=== PATIENT | male | born 1950 | race Caucasian/White ===

== ENCOUNTER 2023-02-23 13:10 | Inpatient (IN) | payer OTHER, MEDICARE ==
[2023-02-23] MEDS ORDERED: Ondansetron ODT 4 MG TAB SL PRN (15:47)
[2023-02-23] MEDS ORDERED: Vancomycin HCl 750 MG VIAL IVPB SCH (17:00)
[2023-02-23] MEDS ORDERED: Vancomycin HCl 750 MG in Sodium Chloride 0.9% 250 ML 250 ML IVPB SCH (17:45)
[2023-02-23] MEDS: Carvedilol 25 MG TAB PO SCH (17:48)
[2023-02-23] MEDS ORDERED: Meropenem 1 GM VIAL IVPB SCH (20:00)
[2023-02-23] MEDS: Meropenem 1 GM in Sodium Chloride 0.9% 100 ML IVPB SCH (20:26)
[2023-02-23] MEDS: Apixaban 5 MG TAB PO SCH (20:27)
[2023-02-23] MEDS: HYDROcodone/Acetaminophen 5/325 mg Tablet PO SCH (20:27)
[2023-02-23] MEDS: Pregabalin 50 MG CAP PO SCH (20:29)
[2023-02-23] MEDS: Lisinopril 20 MG TAB PO SCH (20:29)
[2023-02-24] MEDS: HYDROcodone/Acetaminophen 5/325 mg Tablet PO PRN ×2 (02:16→15:56)
[2023-02-24] MEDS: Vancomycin HCl 750 MG in Sodium Chloride 0.9% 250 ML 250 ML IVPB SCH ×2 (04:15→16:58)
[2023-02-24] MEDS: Meropenem 1 GM in Sodium Chloride 0.9% 100 ML IVPB SCH ×3 (05:20→20:28)
[2023-02-24 05:24] LABS: #Basophils 0.1 thou/uL (0.0-0.2); #Eosinphils 0.1 thou/uL (0.0-0.7); #Lymphocytes 0.8 thou/uL (1.20-3.40); #Monocytes 0.8 thou/uL (0.11-0.59); %Basophils 1.6 % (0.0-1.0); %Eosinophils 1.7 % (0.0-10.0); %Lymphocytes 16.3 % (21.0-51.0); %Monocytes 16.1 % (0.0-10.0); %Neutrophils 64.3 % (42.0-75.0); Hematocrit 28.4 % (42.0-52.0); Hemoglobin 9.1 g/dL (14.0-18.0); Mean Corpuscular HGB CONC 31.9 g/dL (32.0-36.0); Mean Corpuscular Hemoglobin 32.1 pg (27.0-31.0); Platelet Count 217 10x3/uL (130-400); RBC Distribution Width 15.2 % (11.5-14.5); Red Blood Cell (RBC) Count 2.82 mill/uL (4.70-6.10); White Blood Cell (WBC) Count 4.7 10x3/uL (4.8-10.8)
[2023-02-24 05:42] LABS: ALT (SGPT) 15 U/L (8-55); AST (SGOT) 24 U/L (5-34); Albumin 2.9 g/dL (3.4-4.8); Alkaline Phosphatase 64 U/L (40-110); Anion Gap 10 mmol/L (10-20); BUN (Urea Nitrogen) 11 mg/dL (8.4-25.7); Bilirubin, Total 0.7 mg/dL (0.2-1.2); Calc. Creatinine Clearance 126 mL/min (70-130); Calcium 8.6 mg/dL (7.8-10.44); Carbon Dioxide 24 mmol/L (23-31); Chloride 107 mmol/L (98-107); Estimated GFR 95; Globulin 2.4 g/dL (2.4-3.5); Glucose 93 mg/dL (83-110); Protein, Total 5.3 g/dL (5.8-8.1); Sodium 137 mmol/L (136-145)
[2023-02-24] MEDS: NIFEdipine XL 30 MG ER.TAB PO SCH (08:01)
[2023-02-24] MEDS: Tamsulosin HCl 0.4 MG CAP PO SCH (08:01)
[2023-02-24] MEDS: Potassium Chloride 20 MEQ TAB PO SCH (08:01)
[2023-02-24] MEDS: Saccharomyces boulardii 250 MG CAP PO SCH (08:01)
[2023-02-24] MEDS: Pregabalin 50 MG CAP PO SCH ×3 (08:01→20:40)
[2023-02-24] MEDS: Empagliflozin 10 MG TAB PO SCH (08:02)
[2023-02-24] MEDS: Carvedilol 25 MG TAB PO SCH ×2 (08:02→16:59)
[2023-02-24] MEDS: HYDROcodone/Acetaminophen 5/325 mg Tablet PO SCH ×3 (08:02→20:42)
[2023-02-24] MEDS: Apixaban 5 MG TAB PO SCH ×2 (08:02→20:40)
[2023-02-24] MEDS: Lisinopril 20 MG TAB PO SCH (20:41)
[2023-02-25] MEDS: Meropenem 1 GM in Sodium Chloride 0.9% 100 ML IVPB SCH ×3 (04:28→19:41)
[2023-02-25 04:55] LABS: Vancomycin, Trough 16.2 ug/mL
[2023-02-25] MEDS: Vancomycin HCl 750 MG in Sodium Chloride 0.9% 250 ML 250 ML IVPB SCH ×3 (06:05→18:07)
[2023-02-25] MEDS: NIFEdipine XL 30 MG ER.TAB PO SCH (08:02)
[2023-02-25] MEDS: Pregabalin 50 MG CAP PO SCH ×3 (08:02→21:16)
[2023-02-25] MEDS: Apixaban 5 MG TAB PO SCH ×2 (08:02→21:18)
[2023-02-25] MEDS: Carvedilol 25 MG TAB PO SCH ×2 (08:02→17:35)
[2023-02-25] MEDS: Potassium Chloride 20 MEQ TAB PO SCH (08:02)
[2023-02-25] MEDS: Empagliflozin 10 MG TAB PO SCH (08:02)
[2023-02-25] MEDS: HYDROcodone/Acetaminophen 5/325 mg Tablet PO SCH ×3 (08:03→21:18)
[2023-02-25] MEDS: Saccharomyces boulardii 250 MG CAP PO SCH (08:04)
[2023-02-25] MEDS: Tamsulosin HCl 0.4 MG CAP PO SCH (08:04)
[2023-02-25] MEDS: HYDROcodone/Acetaminophen 5/325 mg Tablet PO PRN (09:17)
[2023-02-25] MEDS: Lisinopril 20 MG TAB PO SCH (21:18)
[2023-02-26] MEDS: HYDROcodone/Acetaminophen 5/325 mg Tablet PO PRN ×2 (00:16→18:44)
[2023-02-26] MEDS: Meropenem 1 GM in Sodium Chloride 0.9% 100 ML IVPB SCH ×3 (04:14→20:09)
[2023-02-26 05:55] LABS: #Basophils 0.1 thou/uL (0.0-0.2); #Eosinphils 0.1 thou/uL (0.0-0.7); #Lymphocytes 0.8 thou/uL (1.20-3.40); #Monocytes 0.9 thou/uL (0.11-0.59); %Basophils 2.4 % (0.0-1.0); %Eosinophils 2.3 % (0.0-10.0); %Lymphocytes 15.5 % (21.0-51.0); %Monocytes 18.3 % (0.0-10.0); %Neutrophils 61.5 % (42.0-75.0); Hematocrit 28.1 % (42.0-52.0); Mean Corpuscular Hemoglobin 31.9 pg (27.0-31.0); Mean Corpuscular Volume 99.8 fl (78.0-98.0); Mean Platelet Volume 6.8 fL (7.4-10.4); Platelet Count 212 10x3/uL (130-400); RBC Distribution Width 14.9 % (11.5-14.5); Red Blood Cell (RBC) Count 2.82 mill/uL (4.70-6.10); White Blood Cell (WBC) Count 4.8 10x3/uL (4.8-10.8)
[2023-02-26 06:04] LABS: Anion Gap 11 mmol/L (10-20); BUN (Urea Nitrogen) 17 mg/dL (8.4-25.7); Calc. Creatinine Clearance 131 mL/min (70-130); Calcium 8.5 mg/dL (7.8-10.44); Carbon Dioxide 23 mmol/L (23-31); Chloride 106 mmol/L (98-107); Estimated GFR 96; Glucose 89 mg/dL (83-110); Potassium 4.1 mmol/L (3.5-5.1); Sodium 136 mmol/L (136-145)
[2023-02-26] MEDS: Tamsulosin HCl 0.4 MG CAP PO SCH (07:54)
[2023-02-26] MEDS: Pregabalin 50 MG CAP PO SCH ×3 (07:54→20:14)
[2023-02-26] MEDS: Potassium Chloride 20 MEQ TAB PO SCH (07:54)
[2023-02-26] MEDS: Saccharomyces boulardii 250 MG CAP PO SCH (07:54)
[2023-02-26] MEDS: HYDROcodone/Acetaminophen 5/325 mg Tablet PO SCH ×3 (07:55→20:15)
[2023-02-26] MEDS: Empagliflozin 10 MG TAB PO SCH (07:56)
[2023-02-26] MEDS: Vancomycin HCl 750 MG in Sodium Chloride 0.9% 250 ML 250 ML IVPB SCH ×2 (07:58→18:46)
[2023-02-26] MEDS: Apixaban 5 MG TAB PO SCH ×2 (07:58→20:14)
[2023-02-26] MEDS: Carvedilol 25 MG TAB PO SCH (08:01)
[2023-02-26] MEDS: NIFEdipine XL 30 MG ER.TAB PO SCH (08:01)
[2023-02-26] MEDS ORDERED: Carvedilol 25 MG TAB PO SCH (17:15)
[2023-02-26 18:15] LABS: Vancomycin, Trough 17.3 ug/mL
[2023-02-26] MEDS: Lisinopril 20 MG TAB PO SCH (20:17)
[2023-02-27] MEDS: HYDROcodone/Acetaminophen 5/325 mg Tablet PO PRN ×2 (01:08→19:20)
[2023-02-27] MEDS: Meropenem 1 GM in Sodium Chloride 0.9% 100 ML IVPB SCH ×3 (04:25→20:45)
[2023-02-27] MEDS: Vancomycin HCl 750 MG in Sodium Chloride 0.9% 250 ML 250 ML IVPB SCH ×2 (07:59→19:20)
[2023-02-27] MEDS: Potassium Chloride 20 MEQ TAB PO SCH (08:44)
[2023-02-27] MEDS: Empagliflozin 10 MG TAB PO SCH (08:45)
[2023-02-27] MEDS: Pregabalin 50 MG CAP PO SCH ×3 (08:46→20:43)
[2023-02-27] MEDS: Carvedilol 25 MG TAB PO SCH ×2 (08:46→17:09)
[2023-02-27] MEDS: Tamsulosin HCl 0.4 MG CAP PO SCH (08:47)
[2023-02-27] MEDS: HYDROcodone/Acetaminophen 5/325 mg Tablet PO SCH ×3 (08:48→20:40)
[2023-02-27] MEDS: Saccharomyces boulardii 250 MG CAP PO SCH (08:48)
[2023-02-27] MEDS: NIFEdipine XL 30 MG ER.TAB PO SCH (08:48)
[2023-02-27] MEDS: Apixaban 5 MG TAB PO SCH ×2 (08:52→20:45)
[2023-02-27] MEDS: Lisinopril 20 MG TAB PO SCH (20:44)
[2023-02-28] MEDS: Meropenem 1 GM in Sodium Chloride 0.9% 100 ML IVPB SCH ×3 (03:40→21:03)
[2023-02-28 06:06] LABS: Vancomycin, Trough 16.4 ug/mL
[2023-02-28] MEDS: Vancomycin HCl 750 MG in Sodium Chloride 0.9% 250 ML 250 ML IVPB SCH ×2 (07:31→19:47)
[2023-02-28] MEDS: HYDROcodone/Acetaminophen 5/325 mg Tablet PO SCH ×3 (07:59→21:01)
[2023-02-28] MEDS: Tamsulosin HCl 0.4 MG CAP PO SCH (07:59)
[2023-02-28] MEDS: Empagliflozin 10 MG TAB PO SCH (08:00)
[2023-02-28] MEDS: Pregabalin 50 MG CAP PO SCH ×3 (08:01→21:01)
[2023-02-28] MEDS: Saccharomyces boulardii 250 MG CAP PO SCH (08:01)
[2023-02-28] MEDS: Apixaban 5 MG TAB PO SCH ×2 (08:01→21:02)
[2023-02-28] MEDS: NIFEdipine XL 30 MG ER.TAB PO SCH (08:04)
[2023-02-28] MEDS: Carvedilol 25 MG TAB PO SCH ×2 (08:04→16:44)
[2023-02-28] MEDS: Potassium Chloride 20 MEQ TAB PO SCH (08:08)
[2023-02-28] MEDS: Bisacodyl 5 MG TAB PO PRN (18:08)
[2023-02-28] MEDS: Lisinopril 20 MG TAB PO SCH (21:02)
[2023-03-01] MEDS: Meropenem 1 GM in Sodium Chloride 0.9% 100 ML IVPB SCH ×3 (03:25→21:31)
[2023-03-01] MEDS: HYDROcodone/Acetaminophen 5/325 mg Tablet PO PRN ×2 (04:02→16:50)
[2023-03-01] MEDS: Carvedilol 25 MG TAB PO SCH ×2 (07:53→16:32)
[2023-03-01] MEDS: Saccharomyces boulardii 250 MG CAP PO SCH (07:54)
[2023-03-01] MEDS: Empagliflozin 10 MG TAB PO SCH (07:54)
[2023-03-01] MEDS: Apixaban 5 MG TAB PO SCH ×2 (07:54→20:31)
[2023-03-01] MEDS: Tamsulosin HCl 0.4 MG CAP PO SCH (07:54)
[2023-03-01] MEDS: HYDROcodone/Acetaminophen 5/325 mg Tablet PO SCH ×3 (07:54→20:32)
[2023-03-01] MEDS: Potassium Chloride 20 MEQ TAB PO SCH (07:54)
[2023-03-01] MEDS: Pregabalin 50 MG CAP PO SCH ×3 (07:55→20:31)
[2023-03-01] MEDS: NIFEdipine XL 30 MG ER.TAB PO SCH (07:56)
[2023-03-01] MEDS: Ferrous Sulfate 325 MG TAB PO SCH (08:03)
[2023-03-01] MEDS: Vancomycin HCl 750 MG in Sodium Chloride 0.9% 250 ML 250 ML IVPB SCH ×2 (08:04→20:29)
[2023-03-01] MEDS: Lisinopril 20 MG TAB PO SCH (20:31)
[2023-03-02] MEDS: Meropenem 1 GM in Sodium Chloride 0.9% 100 ML IVPB SCH ×3 (03:52→21:19)
[2023-03-02 07:06] LABS: #Basophils 0.1 thou/uL (0.0-0.2); #Eosinphils 0.1 thou/uL (0.0-0.7); #Lymphocytes 0.8 thou/uL (1.20-3.40); #Monocytes 0.7 thou/uL (0.11-0.59); #Neutrophils 2.4 thou/uL (1.40-6.50); %Basophils 2.2 % (0.0-1.0); %Eosinophils 2.2 % (0.0-10.0); %Lymphocytes 19.6 % (21.0-51.0); %Neutrophils 59.1 % (42.0-75.0); Hematocrit 27.7 % (42.0-52.0); Hemoglobin 8.9 g/dL (14.0-18.0); Mean Corpuscular HGB CONC 31.9 g/dL (32.0-36.0); Mean Corpuscular Hemoglobin 31.5 pg (27.0-31.0); Mean Corpuscular Volume 98.8 fl (78.0-98.0); Mean Platelet Volume 6.9 fL (7.4-10.4); Platelet Count 201 10x3/uL (130-400); RBC Distribution Width 14.1 % (11.5-14.5); Red Blood Cell (RBC) Count 2.81 mill/uL (4.70-6.10)
[2023-03-02 07:16] LABS: Vancomycin, Trough 17.6 ug/mL
[2023-03-02 07:18] LABS: Anion Gap 11 mmol/L (10-20); BUN (Urea Nitrogen) 16 mg/dL (8.4-25.7); Calc. Creatinine Clearance 124 mL/min (70-130); Calcium 8.6 mg/dL (7.8-10.44); Carbon Dioxide 25 mmol/L (23-31); Chloride 108 mmol/L (98-107); Estimated GFR 93; Glucose 88 mg/dL (83-110); Potassium 4.1 mmol/L (3.5-5.1); Sodium 140 mmol/L (136-145)
[2023-03-02] MEDS: Potassium Chloride 20 MEQ TAB PO SCH (07:19)
[2023-03-02] MEDS: Tamsulosin HCl 0.4 MG CAP PO SCH (07:19)
[2023-03-02] MEDS: Ferrous Sulfate 325 MG TAB PO SCH (07:20)
[2023-03-02] MEDS: Empagliflozin 10 MG TAB PO SCH (07:20)
[2023-03-02] MEDS: Apixaban 5 MG TAB PO SCH ×2 (07:20→20:13)
[2023-03-02] MEDS: Pregabalin 50 MG CAP PO SCH ×3 (07:20→20:13)
[2023-03-02] MEDS: Carvedilol 25 MG TAB PO SCH ×2 (07:20→17:20)
[2023-03-02] MEDS: Saccharomyces boulardii 250 MG CAP PO SCH (07:20)
[2023-03-02] MEDS: HYDROcodone/Acetaminophen 5/325 mg Tablet PO SCH ×3 (07:21→20:14)
[2023-03-02] MEDS: Vancomycin HCl 750 MG in Sodium Chloride 0.9% 250 ML 250 ML IVPB SCH ×2 (07:39→20:09)
[2023-03-02] MEDS: HYDROcodone/Acetaminophen 5/325 mg Tablet PO PRN (12:01)
[2023-03-02] MEDS: Lisinopril 20 MG TAB PO SCH (20:12)
[2023-03-03] MEDS: HYDROcodone/Acetaminophen 5/325 mg Tablet PO PRN ×2 (00:33→11:07)
[2023-03-03] MEDS: Meropenem 1 GM in Sodium Chloride 0.9% 100 ML IVPB SCH ×3 (03:46→21:21)
[2023-03-03 06:25] LABS: #Basophils 0.1 thou/uL (0.0-0.2); #Eosinphils 0.1 thou/uL (0.0-0.7); #Lymphocytes 0.7 thou/uL (1.20-3.40); #Monocytes 0.7 thou/uL (0.11-0.59); #Neutrophils 2.4 thou/uL (1.40-6.50); %Eosinophils 2.1 % (0.0-10.0); %Lymphocytes 18.1 % (21.0-51.0); %Monocytes 17.4 % (0.0-10.0); %Neutrophils 59.4 % (42.0-75.0); Hematocrit 27.5 % (42.0-52.0); Hemoglobin 8.9 g/dL (14.0-18.0); Mean Corpuscular HGB CONC 32.5 g/dL (32.0-36.0); Mean Corpuscular Volume 98.6 fl (78.0-98.0); Mean Platelet Volume 6.9 fL (7.4-10.4); Platelet Count 200 10x3/uL (130-400); RBC Distribution Width 14.2 % (11.5-14.5); Red Blood Cell (RBC) Count 2.79 mill/uL (4.70-6.10); White Blood Cell (WBC) Count 4.1 10x3/uL (4.8-10.8)
[2023-03-03 06:34] LABS: ALT (SGPT) 20 U/L (8-55); AST (SGOT) 27 U/L (5-34); Alkaline Phosphatase 68 U/L (40-110); Anion Gap 9 mmol/L (10-20); BUN (Urea Nitrogen) 15 mg/dL (8.4-25.7); Bilirubin, Total 0.7 mg/dL (0.2-1.2); CRP (Inflammatory) 0.67 mg/dL (= or < 0.5); Calc. Creatinine Clearance 134 mL/min (70-130); Calcium 8.6 mg/dL (7.8-10.44); Carbon Dioxide 25 mmol/L (23-31); Chloride 109 mmol/L (98-107); Estimated GFR 95; Globulin 2.4 g/dL (2.4-3.5); Glucose 89 mg/dL (83-110); Protein, Total 5.4 g/dL (5.8-8.1); Sodium 139 mmol/L (136-145)
[2023-03-03] MEDS: Saccharomyces boulardii 250 MG CAP PO SCH (08:12)
[2023-03-03] MEDS: Potassium Chloride 20 MEQ TAB PO SCH (08:12)
[2023-03-03] MEDS: Tamsulosin HCl 0.4 MG CAP PO SCH (08:12)
[2023-03-03] MEDS: Apixaban 5 MG TAB PO SCH ×2 (08:13→20:12)
[2023-03-03] MEDS: Ferrous Sulfate 325 MG TAB PO SCH (08:13)
[2023-03-03] MEDS: Empagliflozin 10 MG TAB PO SCH (08:13)
[2023-03-03] MEDS: Carvedilol 25 MG TAB PO SCH ×2 (08:13→16:53)
[2023-03-03] MEDS: Pregabalin 50 MG CAP PO SCH ×3 (08:13→20:13)
[2023-03-03] MEDS: HYDROcodone/Acetaminophen 5/325 mg Tablet PO SCH ×3 (08:14→20:11)
[2023-03-03] MEDS: Vancomycin HCl 750 MG in Sodium Chloride 0.9% 250 ML 250 ML IVPB SCH ×2 (08:14→20:14)
[2023-03-03] MEDS: Lisinopril 20 MG TAB PO SCH (20:12)
[2023-03-04] MEDS: Meropenem 1 GM in Sodium Chloride 0.9% 100 ML IVPB SCH ×3 (03:59→20:45)
[2023-03-04 06:28] LABS: #Basophils 0.1 thou/uL (0.0-0.2); #Eosinphils 0.1 thou/uL (0.0-0.7); #Lymphocytes 0.6 thou/uL (1.20-3.40); #Monocytes 0.8 thou/uL (0.11-0.59); #Neutrophils 2.1 thou/uL (1.40-6.50); %Basophils 2.8 % (0.0-1.0); %Eosinophils 2.7 % (0.0-10.0); %Lymphocytes 16.2 % (21.0-51.0); %Monocytes 20.7 % (0.0-10.0); Hematocrit 27.2 % (42.0-52.0); Hemoglobin 8.9 g/dL (14.0-18.0); Mean Corpuscular HGB CONC 32.8 g/dL (32.0-36.0); Mean Corpuscular Volume 97.4 fl (78.0-98.0); Mean Platelet Volume 6.5 fL (7.4-10.4); Platelet Count 198 10x3/uL (130-400); RBC Distribution Width 14.2 % (11.5-14.5); Red Blood Cell (RBC) Count 2.79 mill/uL (4.70-6.10); White Blood Cell (WBC) Count 3.7 10x3/uL (4.8-10.8)
[2023-03-04] MEDS: HYDROcodone/Acetaminophen 5/325 mg Tablet PO PRN ×2 (06:32→12:31)
[2023-03-04 06:44] LABS: ALT (SGPT) 21 U/L (8-55); AST (SGOT) 29 U/L (5-34); Albumin 2.9 g/dL (3.4-4.8); Alkaline Phosphatase 67 U/L (40-110); Anion Gap 10 mmol/L (10-20); BUN (Urea Nitrogen) 15 mg/dL (8.4-25.7); Bilirubin, Total 0.6 mg/dL (0.2-1.2); CRP (Inflammatory) 0.61 mg/dL (= or < 0.5); Calc. Creatinine Clearance 138 mL/min (70-130); Calcium 8.6 mg/dL (7.8-10.44); Carbon Dioxide 24 mmol/L (23-31); Chloride 108 mmol/L (98-107); Estimated GFR 96; Globulin 2.2 g/dL (2.4-3.5); Glucose 91 mg/dL (83-110); Protein, Total 5.1 g/dL (5.8-8.1); Sodium 138 mmol/L (136-145)
[2023-03-04 06:47] LABS: %Neutrophils 57.7 % (42.0-75.0)
[2023-03-04] MEDS: Saccharomyces boulardii 250 MG CAP PO SCH (08:06)
[2023-03-04] MEDS: Tamsulosin HCl 0.4 MG CAP PO SCH (08:06)
[2023-03-04] MEDS: Potassium Chloride 20 MEQ TAB PO SCH (08:07)
[2023-03-04] MEDS: Pregabalin 50 MG CAP PO SCH ×3 (08:07→20:12)
[2023-03-04] MEDS: HYDROcodone/Acetaminophen 5/325 mg Tablet PO SCH ×3 (08:07→20:13)
[2023-03-04] MEDS: Empagliflozin 10 MG TAB PO SCH (08:08)
[2023-03-04] MEDS: Ferrous Sulfate 325 MG TAB PO SCH (08:08)
[2023-03-04] MEDS: Carvedilol 25 MG TAB PO SCH ×2 (08:08→17:12)
[2023-03-04] MEDS: Vancomycin HCl 750 MG in Sodium Chloride 0.9% 250 ML 250 ML IVPB SCH ×2 (08:08→19:40)
[2023-03-04] MEDS: Apixaban 5 MG TAB PO SCH ×2 (08:08→20:12)
[2023-03-04] MEDS: Lisinopril 20 MG TAB PO SCH (20:12)
[2023-03-05] MEDS: Meropenem 1 GM in Sodium Chloride 0.9% 100 ML IVPB SCH ×3 (04:01→19:28)
[2023-03-05] MEDS: HYDROcodone/Acetaminophen 5/325 mg Tablet PO PRN ×2 (06:16→19:22)
[2023-03-05 07:19] LABS: Vancomycin, Trough 17.3 ug/mL
[2023-03-05] MEDS: Ferrous Sulfate 325 MG TAB PO SCH (08:02)
[2023-03-05] MEDS: Saccharomyces boulardii 250 MG CAP PO SCH (08:02)
[2023-03-05] MEDS: Apixaban 5 MG TAB PO SCH ×2 (08:02→21:09)
[2023-03-05] MEDS: Empagliflozin 10 MG TAB PO SCH (08:03)
[2023-03-05] MEDS: Carvedilol 25 MG TAB PO SCH ×2 (08:03→16:44)
[2023-03-05] MEDS: Potassium Chloride 20 MEQ TAB PO SCH (08:03)
[2023-03-05] MEDS: Tamsulosin HCl 0.4 MG CAP PO SCH (08:03)
[2023-03-05] MEDS: Pregabalin 50 MG CAP PO SCH ×3 (08:03→21:06)
[2023-03-05] MEDS: HYDROcodone/Acetaminophen 5/325 mg Tablet PO SCH ×3 (08:04→21:07)
[2023-03-05] MEDS: Vancomycin HCl 750 MG in Sodium Chloride 0.9% 250 ML 250 ML IVPB SCH ×2 (08:05→22:24)
[2023-03-05] MEDS: Diclofenac 1% 100 GM Topical GEL TP SCH ×3 (13:00→21:11)
[2023-03-05] MEDS: Senokot S 8.6-50 MG TAB PO PRN (16:44)
[2023-03-05] MEDS: Lisinopril 20 MG TAB PO SCH (21:08)
[2023-03-05] MEDS ORDERED: Vancomycin HCl 750 MG VIAL ONE (22:20)
[2023-03-06] MEDS: Meropenem 1 GM in Sodium Chloride 0.9% 100 ML IVPB SCH ×3 (03:50→21:02)
[2023-03-06] MEDS: HYDROcodone/Acetaminophen 5/325 mg Tablet PO SCH ×3 (08:14→21:00)
[2023-03-06] MEDS: Pregabalin 50 MG CAP PO SCH ×3 (08:14→20:59)
[2023-03-06] MEDS: Potassium Chloride 20 MEQ TAB PO SCH (08:15)
[2023-03-06] MEDS: Saccharomyces boulardii 250 MG CAP PO SCH (08:15)
[2023-03-06] MEDS: Empagliflozin 10 MG TAB PO SCH (08:15)
[2023-03-06] MEDS: Ferrous Sulfate 325 MG TAB PO SCH (08:15)
[2023-03-06] MEDS: Tamsulosin HCl 0.4 MG CAP PO SCH (08:15)
[2023-03-06] MEDS: Apixaban 5 MG TAB PO SCH ×2 (08:15→21:00)
[2023-03-06] MEDS: Vancomycin HCl 750 MG in Sodium Chloride 0.9% 250 ML 250 ML IVPB SCH ×2 (08:16→20:01)
[2023-03-06] MEDS: Carvedilol 25 MG TAB PO SCH ×2 (08:16→16:49)
[2023-03-06] MEDS: Diclofenac 1% 100 GM Topical GEL TP SCH ×4 (08:18→21:46)
[2023-03-06] MEDS: Bisacodyl 5 MG TAB PO PRN (09:11)
[2023-03-06] MEDS: Polyethylene Glycol 3350 17 GM Packet PO SCH (09:19)
[2023-03-06] MEDS: HYDROcodone/Acetaminophen 5/325 mg Tablet PO PRN ×2 (11:05→19:05)
[2023-03-06] MEDS: Lisinopril 20 MG TAB PO SCH (21:00)
[2023-03-07] MEDS: HYDROcodone/Acetaminophen 5/325 mg Tablet PO PRN (02:18)
[2023-03-07] MEDS: Meropenem 1 GM in Sodium Chloride 0.9% 100 ML IVPB SCH ×3 (03:59→19:48)
[2023-03-07 05:45] LABS: #Basophils 0.1 thou/uL (0.0-0.2); #Eosinphils 0.1 thou/uL (0.0-0.7); #Lymphocytes 0.7 thou/uL (1.20-3.40); #Monocytes 0.6 thou/uL (0.11-0.59); #Neutrophils 1.6 thou/uL (1.40-6.50); %Eosinophils 2.7 % (0.0-10.0); %Lymphocytes 22.1 % (21.0-51.0); %Monocytes 20.9 % (0.0-10.0); %Neutrophils 52.4 % (42.0-75.0); Hematocrit 27.6 % (42.0-52.0); Hemoglobin 8.8 g/dL (14.0-18.0); Mean Corpuscular HGB CONC 31.7 g/dL (32.0-36.0); Mean Corpuscular Hemoglobin 31.4 pg (27.0-31.0); Mean Corpuscular Volume 99.2 fl (78.0-98.0); Mean Platelet Volume 6.7 fL (7.4-10.4); Platelet Count 169 10x3/uL (130-400); RBC Distribution Width 13.6 % (11.5-14.5); Red Blood Cell (RBC) Count 2.78 mill/uL (4.70-6.10)
[2023-03-07 05:55] LABS: Anion Gap 10 mmol/L (10-20); BUN (Urea Nitrogen) 16 mg/dL (8.4-25.7); Calc. Creatinine Clearance 120 mL/min (70-130); Calcium 8.5 mg/dL (7.8-10.44); Carbon Dioxide 25 mmol/L (23-31); Chloride 108 mmol/L (98-107); Estimated GFR 91; Glucose 87 mg/dL (83-110); Potassium 4.1 mmol/L (3.5-5.1); Sodium 139 mmol/L (136-145)
[2023-03-07] MEDS: Vancomycin HCl 750 MG in Sodium Chloride 0.9% 250 ML 250 ML IVPB SCH ×2 (08:48→19:48)
[2023-03-07] MEDS: Diclofenac 1% 100 GM Topical GEL TP SCH ×4 (08:49→20:22)
[2023-03-07] MEDS: Polyethylene Glycol 3350 17 GM Packet PO SCH (08:50)
[2023-03-07] MEDS: Potassium Chloride 20 MEQ TAB PO SCH (08:51)
[2023-03-07] MEDS: Carvedilol 25 MG TAB PO SCH ×2 (08:51→17:32)
[2023-03-07] MEDS: Saccharomyces boulardii 250 MG CAP PO SCH (08:51)
[2023-03-07] MEDS: Pregabalin 50 MG CAP PO SCH ×3 (08:51→20:13)
[2023-03-07] MEDS: Empagliflozin 10 MG TAB PO SCH (08:52)
[2023-03-07] MEDS: Ferrous Sulfate 325 MG TAB PO SCH (08:52)
[2023-03-07] MEDS: Tamsulosin HCl 0.4 MG CAP PO SCH (08:52)
[2023-03-07] MEDS: Apixaban 5 MG TAB PO SCH ×2 (08:52→20:13)
[2023-03-07] MEDS: HYDROcodone/Acetaminophen 5/325 mg Tablet PO SCH ×3 (08:53→20:11)
[2023-03-07] MEDS: Bisacodyl 5 MG TAB PO PRN (12:21)
[2023-03-07] MEDS: Acetaminophen 325 MG TAB PO PRN (17:52)
[2023-03-07] MEDS: Lisinopril 20 MG TAB PO SCH (20:15)
[2023-03-08] MEDS: Meropenem 1 GM in Sodium Chloride 0.9% 100 ML IVPB SCH ×3 (04:36→21:27)
[2023-03-08] MEDS: HYDROcodone/Acetaminophen 5/325 mg Tablet PO PRN ×2 (04:38→21:27)
[2023-03-08] MEDS: Vancomycin HCl 750 MG in Sodium Chloride 0.9% 250 ML 250 ML IVPB SCH ×2 (07:40→20:37)
[2023-03-08] MEDS: Pregabalin 50 MG CAP PO SCH ×3 (08:15→21:23)
[2023-03-08] MEDS: HYDROcodone/Acetaminophen 5/325 mg Tablet PO SCH ×3 (08:16→21:26)
[2023-03-08] MEDS: Carvedilol 25 MG TAB PO SCH ×2 (08:17→17:33)
[2023-03-08] MEDS: Potassium Chloride 20 MEQ TAB PO SCH (08:17)
[2023-03-08] MEDS: Tamsulosin HCl 0.4 MG CAP PO SCH (08:18)
[2023-03-08] MEDS: Apixaban 5 MG TAB PO SCH ×2 (08:18→21:26)
[2023-03-08] MEDS: Saccharomyces boulardii 250 MG CAP PO SCH (08:18)
[2023-03-08] MEDS: Empagliflozin 10 MG TAB PO SCH (08:18)
[2023-03-08] MEDS: Ferrous Sulfate 325 MG TAB PO SCH (08:18)
[2023-03-08] MEDS: Diclofenac 1% 100 GM Topical GEL TP SCH ×4 (08:19→21:37)
[2023-03-08] MEDS: Polyethylene Glycol 3350 17 GM Packet PO SCH (09:09)
[2023-03-08] MEDS: Lisinopril 20 MG TAB PO SCH (21:24)
[2023-03-09] MEDS: Meropenem 1 GM in Sodium Chloride 0.9% 100 ML IVPB SCH ×3 (04:00→20:48)
[2023-03-09] MEDS: HYDROcodone/Acetaminophen 5/325 mg Tablet PO PRN (04:08)
[2023-03-09] MEDS: HYDROcodone/Acetaminophen 5/325 mg Tablet PO SCH ×3 (09:20→20:47)
[2023-03-09] MEDS: Pregabalin 50 MG CAP PO SCH ×3 (09:21→20:46)
[2023-03-09] MEDS: Carvedilol 25 MG TAB PO SCH ×2 (09:22→16:41)
[2023-03-09] MEDS: Ferrous Sulfate 325 MG TAB PO SCH (09:22)
[2023-03-09] MEDS: Tamsulosin HCl 0.4 MG CAP PO SCH (09:22)
[2023-03-09] MEDS: Apixaban 5 MG TAB PO SCH ×2 (09:23→20:48)
[2023-03-09] MEDS: Potassium Chloride 20 MEQ TAB PO SCH (09:23)
[2023-03-09] MEDS: Saccharomyces boulardii 250 MG CAP PO SCH (09:23)
[2023-03-09] MEDS: Diclofenac 1% 100 GM Topical GEL TP SCH ×4 (09:24→20:48)
[2023-03-09] MEDS: Vancomycin HCl 750 MG in Sodium Chloride 0.9% 250 ML 250 ML IVPB SCH ×2 (09:24→19:45)
[2023-03-09] MEDS: Polyethylene Glycol 3350 17 GM Packet PO SCH (09:26)
[2023-03-09] MEDS: Empagliflozin 10 MG TAB PO SCH (09:37)
[2023-03-09] MEDS: Senokot S 8.6-50 MG TAB PO PRN (14:10)
[2023-03-09] MEDS: Lisinopril 20 MG TAB PO SCH (20:46)
[2023-03-10] MEDS: Meropenem 1 GM in Sodium Chloride 0.9% 100 ML IVPB SCH ×3 (04:45→20:49)
[2023-03-10 07:03] LABS: #Eosinphils 0.1 thou/uL (0.0-0.7); #Lymphocytes 0.7 thou/uL (1.20-3.40); #Monocytes 0.5 thou/uL (0.11-0.59); #Neutrophils 2.2 thou/uL (1.40-6.50); %Basophils 1.3 % (0.0-1.0); %Eosinophils 2.9 % (0.0-10.0); %Lymphocytes 19.8 % (21.0-51.0); Hemoglobin 9.5 g/dL (14.0-18.0); Mean Corpuscular HGB CONC 31.6 g/dL (32.0-36.0); Mean Corpuscular Hemoglobin 31.4 pg (27.0-31.0); Mean Corpuscular Volume 99.3 fl (78.0-98.0); Platelet Count 167 10x3/uL (130-400); Red Blood Cell (RBC) Count 3.02 mill/uL (4.70-6.10); White Blood Cell (WBC) Count 3.5 10x3/uL (4.8-10.8)
[2023-03-10 07:15] LABS: Vancomycin, Trough 16.4 ug/mL
[2023-03-10 07:21] LABS: ALT (SGPT) 21 U/L (8-55); AST (SGOT) 26 U/L (5-34); Albumin 3.2 g/dL (3.4-4.8); Alkaline Phosphatase 88 U/L (40-110); Anion Gap 11 mmol/L (10-20); BUN (Urea Nitrogen) 15 mg/dL (8.4-25.7); Bilirubin, Total 0.6 mg/dL (0.2-1.2); Calc. Creatinine Clearance 133 mL/min (70-130); Calcium 8.6 mg/dL (7.8-10.44); Carbon Dioxide 24 mmol/L (23-31); Chloride 109 mmol/L (98-107); Estimated GFR 93; Globulin 2.6 g/dL (2.4-3.5); Glucose 86 mg/dL (83-110); Potassium 3.8 mmol/L (3.5-5.1); Protein, Total 5.8 g/dL (5.8-8.1); Sodium 140 mmol/L (136-145)
[2023-03-10] MEDS: Carvedilol 25 MG TAB PO SCH ×2 (07:24→16:45)
[2023-03-10] MEDS: Potassium Chloride 20 MEQ TAB PO SCH (07:27)
[2023-03-10] MEDS: Ferrous Sulfate 325 MG TAB PO SCH (07:27)
[2023-03-10] MEDS: Tamsulosin HCl 0.4 MG CAP PO SCH (08:14)
[2023-03-10] MEDS: HYDROcodone/Acetaminophen 5/325 mg Tablet PO SCH ×3 (08:17→20:52)
[2023-03-10] MEDS: Saccharomyces boulardii 250 MG CAP PO SCH (08:18)
[2023-03-10] MEDS: Pregabalin 50 MG CAP PO SCH ×3 (08:19→20:51)
[2023-03-10] MEDS: Empagliflozin 10 MG TAB PO SCH (08:20)
[2023-03-10] MEDS: Apixaban 5 MG TAB PO SCH ×2 (08:20→20:52)
[2023-03-10] MEDS: Vancomycin HCl 750 MG in Sodium Chloride 0.9% 250 ML 250 ML IVPB SCH ×2 (08:21→20:16)
[2023-03-10] MEDS: Diclofenac 1% 100 GM Topical GEL TP SCH ×4 (08:39→20:50)
[2023-03-10] MEDS: Polyethylene Glycol 3350 17 GM Packet PO SCH (09:35)
[2023-03-10] MEDS: HYDROcodone/Acetaminophen 5/325 mg Tablet PO PRN (16:48)
[2023-03-10] MEDS ORDERED: Furosemide 40 MG TAB PO SCH (18:15)
[2023-03-10] MEDS ORDERED: Vancomycin HCl 750 MG VIAL ONE (20:12)
[2023-03-10] MEDS: Lisinopril 20 MG TAB PO SCH (20:52)
[2023-03-11] MEDS: Meropenem 1 GM in Sodium Chloride 0.9% 100 ML IVPB SCH ×3 (04:31→20:37)
[2023-03-11] MEDS: HYDROcodone/Acetaminophen 5/325 mg Tablet PO PRN ×3 (05:27→19:23)
[2023-03-11] MEDS ORDERED: Furosemide 40 MG TAB PO SCH (06:00)
[2023-03-11] MEDS ORDERED: Vancomycin HCl 750 MG VIAL ONE (07:44)
[2023-03-11] MEDS: Vancomycin HCl 750 MG in Sodium Chloride 0.9% 250 ML 250 ML IVPB SCH ×2 (08:02→19:22)
[2023-03-11] MEDS: Diclofenac 1% 100 GM Topical GEL TP SCH ×4 (08:05→20:41)
[2023-03-11] MEDS: Pregabalin 50 MG CAP PO SCH ×3 (08:07→20:37)
[2023-03-11] MEDS: HYDROcodone/Acetaminophen 5/325 mg Tablet PO SCH ×3 (08:08→20:41)
[2023-03-11] MEDS: Tamsulosin HCl 0.4 MG CAP PO SCH (08:09)
[2023-03-11] MEDS: Carvedilol 25 MG TAB PO SCH ×2 (08:09→17:26)
[2023-03-11] MEDS: Empagliflozin 10 MG TAB PO SCH (08:10)
[2023-03-11] MEDS: Apixaban 5 MG TAB PO SCH ×2 (08:10→20:41)
[2023-03-11] MEDS: Saccharomyces boulardii 250 MG CAP PO SCH (08:10)
[2023-03-11] MEDS: Potassium Chloride 20 MEQ TAB PO SCH (08:10)
[2023-03-11] MEDS: Ferrous Sulfate 325 MG TAB PO SCH (08:10)
[2023-03-11] MEDS ORDERED: Pregabalin 50 MG CAP PO SCH (17:30)
[2023-03-11] MEDS: Acetaminophen 325 MG TAB PO PRN (19:24)
[2023-03-11] MEDS: Lisinopril 20 MG TAB PO SCH (20:40)
[2023-03-12] MEDS ORDERED: Meropenem 1 GM VIAL ONE (04:43)
[2023-03-12] MEDS: Meropenem 1 GM in Sodium Chloride 0.9% 100 ML IVPB SCH ×3 (04:45→21:02)
[2023-03-12] MEDS: Carvedilol 25 MG TAB PO SCH ×2 (07:38→17:28)
[2023-03-12] MEDS: HYDROcodone/Acetaminophen 5/325 mg Tablet PO PRN ×3 (07:38→23:54)
[2023-03-12] MEDS: Acetaminophen 325 MG TAB PO PRN ×2 (07:39→15:45)
[2023-03-12] MEDS: Tamsulosin HCl 0.4 MG CAP PO SCH (07:41)
[2023-03-12] MEDS: Ferrous Sulfate 325 MG TAB PO SCH (07:41)
[2023-03-12] MEDS: Furosemide 40 MG TAB PO SCH (07:42)
[2023-03-12] MEDS: Potassium Chloride 20 MEQ TAB PO SCH (07:42)
[2023-03-12] MEDS: Pregabalin 50 MG CAP PO SCH ×3 (07:42→20:51)
[2023-03-12] MEDS: Apixaban 5 MG TAB PO SCH ×2 (07:44→20:52)
[2023-03-12] MEDS: Vancomycin HCl 750 MG in Sodium Chloride 0.9% 250 ML 250 ML IVPB SCH ×2 (08:03→19:38)
[2023-03-12] MEDS: Saccharomyces boulardii 250 MG CAP PO SCH (08:04)
[2023-03-12] MEDS: Empagliflozin 10 MG TAB PO SCH (08:04)
[2023-03-12] MEDS: HYDROcodone/Acetaminophen 5/325 mg Tablet PO SCH ×3 (09:48→20:50)
[2023-03-12] MEDS: Diclofenac 1% 100 GM Topical GEL TP SCH ×4 (09:49→21:11)
[2023-03-12] MEDS ORDERED: HYDROcodone/Acetaminophen 5/325 mg Tablet PO SCH (13:15)
[2023-03-12] MEDS ORDERED: Furosemide 40 MG/4 ML VIAL SLOW IVP SCH (15:15)
[2023-03-12] MEDS ORDERED: Furosemide 40 MG/4 ML VIAL ONE (15:40)
[2023-03-12] MEDS: Lisinopril 20 MG TAB PO SCH (20:52)
[2023-03-13] MEDS: Meropenem 1 GM in Sodium Chloride 0.9% 100 ML IVPB SCH ×3 (03:27→21:29)
[2023-03-13] MEDS: Furosemide 40 MG TAB PO SCH (07:11)
[2023-03-13] MEDS: Carvedilol 25 MG TAB PO SCH ×2 (07:11→16:25)
[2023-03-13] MEDS: Vancomycin HCl 750 MG in Sodium Chloride 0.9% 250 ML 250 ML IVPB SCH ×2 (07:12→20:07)
[2023-03-13] MEDS: HYDROcodone/Acetaminophen 5/325 mg Tablet PO PRN ×2 (07:25→16:26)
[2023-03-13] MEDS: Bisacodyl 5 MG TAB PO PRN (07:26)
[2023-03-13] MEDS: Potassium Chloride 20 MEQ TAB PO SCH (07:29)
[2023-03-13] MEDS: Ferrous Sulfate 325 MG TAB PO SCH (07:29)
[2023-03-13] MEDS: HYDROcodone/Acetaminophen 5/325 mg Tablet PO SCH ×3 (08:35→21:19)
[2023-03-13] MEDS: Pregabalin 50 MG CAP PO SCH ×3 (08:36→21:14)
[2023-03-13] MEDS: Saccharomyces boulardii 250 MG CAP PO SCH (08:37)
[2023-03-13] MEDS: Apixaban 5 MG TAB PO SCH ×2 (08:37→21:20)
[2023-03-13] MEDS: Tamsulosin HCl 0.4 MG CAP PO SCH (08:37)
[2023-03-13] MEDS: Empagliflozin 10 MG TAB PO SCH (08:37)
[2023-03-13] MEDS: Diclofenac 1% 100 GM Topical GEL TP SCH ×3 (09:06→16:31)
[2023-03-13] MEDS: Lisinopril 20 MG TAB PO SCH (21:20)
[2023-03-14] MEDS: Meropenem 1 GM in Sodium Chloride 0.9% 100 ML IVPB SCH ×3 (04:55→20:27)
[2023-03-14] MEDS: HYDROcodone/Acetaminophen 5/325 mg Tablet PO PRN ×2 (05:03→17:12)
[2023-03-14 06:05] LABS: #Eosinphils 0.1 thou/uL (0.0-0.7); #Lymphocytes 0.9 thou/uL (1.20-3.40); #Monocytes 0.7 thou/uL (0.11-0.59); #Neutrophils 2.5 thou/uL (1.40-6.50); %Lymphocytes 21.1 % (21.0-51.0); %Monocytes 16.4 % (0.0-10.0); %Neutrophils 59.5 % (42.0-75.0); Hematocrit 29.1 % (42.0-52.0); Hemoglobin 9.5 g/dL (14.0-18.0); Mean Corpuscular HGB CONC 32.6 g/dL (32.0-36.0); Mean Corpuscular Hemoglobin 31.9 pg (27.0-31.0); Mean Corpuscular Volume 97.7 fl (78.0-98.0); Mean Platelet Volume 7.3 fL (7.4-10.4); Platelet Count 158 10x3/uL (130-400); RBC Distribution Width 13.2 % (11.5-14.5); Red Blood Cell (RBC) Count 2.98 mill/uL (4.70-6.10); White Blood Cell (WBC) Count 4.2 10x3/uL (4.8-10.8)
[2023-03-14 06:15] LABS: Anion Gap 13 mmol/L (10-20); BUN (Urea Nitrogen) 15 mg/dL (8.4-25.7); CRP (Inflammatory) 4.11 mg/dL (= or < 0.5); Calc. Creatinine Clearance 123 mL/min (70-130); Calcium 8.6 mg/dL (7.8-10.44); Carbon Dioxide 25 mmol/L (23-31); Chloride 105 mmol/L (98-107); Estimated GFR 91; Glucose 86 mg/dL (83-110); Potassium 3.4 mmol/L (3.5-5.1); Sodium 140 mmol/L (136-145)
[2023-03-14] MEDS: Potassium Chloride 20 MEQ TAB PO SCH (07:56)
[2023-03-14] MEDS: Ferrous Sulfate 325 MG TAB PO SCH (07:56)
[2023-03-14] MEDS: Carvedilol 25 MG TAB PO SCH ×2 (07:56→18:49)
[2023-03-14] MEDS: Furosemide 40 MG TAB PO SCH (07:56)
[2023-03-14] MEDS: Vancomycin HCl 750 MG in Sodium Chloride 0.9% 250 ML 250 ML IVPB SCH ×2 (07:57→20:41)
[2023-03-14] MEDS: Apixaban 5 MG TAB PO SCH ×2 (09:35→20:29)
[2023-03-14] MEDS: Tamsulosin HCl 0.4 MG CAP PO SCH (09:35)
[2023-03-14] MEDS: HYDROcodone/Acetaminophen 5/325 mg Tablet PO SCH ×3 (09:36→20:28)
[2023-03-14] MEDS: Empagliflozin 10 MG TAB PO SCH (09:38)
[2023-03-14] MEDS: Saccharomyces boulardii 250 MG CAP PO SCH (09:38)
[2023-03-14] MEDS: Furosemide 40 MG/4 ML VIAL SLOW IVP SCH (09:38)
[2023-03-14] MEDS: Pregabalin 50 MG CAP PO SCH ×3 (09:38→20:29)
[2023-03-14] MEDS: Acetaminophen 325 MG TAB PO PRN ×2 (09:54→17:11)
[2023-03-14] MEDS ORDERED: Potassium Chloride 20 MEQ TAB PO SCH (18:15)
[2023-03-14] MEDS: Lisinopril 20 MG TAB PO SCH (20:27)
[2023-03-15] MEDS: Meropenem 1 GM in Sodium Chloride 0.9% 100 ML IVPB SCH ×3 (03:45→20:36)
[2023-03-15 07:26] LABS: Anion Gap 13 mmol/L (10-20); BUN (Urea Nitrogen) 15 mg/dL (8.4-25.7); Calc. Creatinine Clearance 118 mL/min (70-130); Calcium 8.7 mg/dL (7.8-10.44); Carbon Dioxide 27 mmol/L (23-31); Chloride 104 mmol/L (98-107); Estimated GFR 89; Glucose 92 mg/dL (83-110); Potassium 3.8 mmol/L (3.5-5.1); Sodium 140 mmol/L (136-145)
[2023-03-15] MEDS: Pregabalin 50 MG CAP PO SCH ×3 (09:00→20:40)
[2023-03-15] MEDS: Potassium Chloride 20 MEQ TAB PO SCH (09:00)
[2023-03-15] MEDS: Tamsulosin HCl 0.4 MG CAP PO SCH (09:00)
[2023-03-15] MEDS: Saccharomyces boulardii 250 MG CAP PO SCH (09:01)
[2023-03-15] MEDS: HYDROcodone/Acetaminophen 5/325 mg Tablet PO SCH ×3 (09:01→20:39)
[2023-03-15] MEDS: Ferrous Sulfate 325 MG TAB PO SCH (09:01)
[2023-03-15] MEDS: Apixaban 5 MG TAB PO SCH ×2 (09:02→20:40)
[2023-03-15] MEDS: Vancomycin HCl 750 MG in Sodium Chloride 0.9% 250 ML 250 ML IVPB SCH ×2 (09:02→20:36)
[2023-03-15] MEDS: Empagliflozin 10 MG TAB PO SCH (09:02)
[2023-03-15] MEDS: Carvedilol 25 MG TAB PO SCH ×2 (09:02→16:50)
[2023-03-15] MEDS: Furosemide 40 MG/4 ML VIAL SLOW IVP SCH (09:02)
[2023-03-15] MEDS: Bisacodyl 5 MG TAB PO PRN (11:55)
[2023-03-15] MEDS: HYDROcodone/Acetaminophen 5/325 mg Tablet PO PRN (16:50)
[2023-03-15] MEDS: Lisinopril 20 MG TAB PO SCH (20:40)
[2023-03-16] MEDS: Meropenem 1 GM in Sodium Chloride 0.9% 100 ML IVPB SCH ×3 (04:11→20:06)
[2023-03-16 05:53] LABS: #Eosinphils 0.1 thou/uL (0.0-0.7); #Lymphocytes 0.8 thou/uL (1.20-3.40); #Monocytes 0.6 thou/uL (0.11-0.59); #Neutrophils 1.8 thou/uL (1.40-6.50); %Basophils 1.5 % (0.0-1.0); %Eosinophils 2.2 % (0.0-10.0); %Lymphocytes 23.9 % (21.0-51.0); %Monocytes 18.3 % (0.0-10.0); %Neutrophils 54.1 % (42.0-75.0); Hematocrit 27.7 % (42.0-52.0); Mean Corpuscular HGB CONC 32.5 g/dL (32.0-36.0); Mean Corpuscular Hemoglobin 31.3 pg (27.0-31.0); Mean Corpuscular Volume 96.3 fl (78.0-98.0); Mean Platelet Volume 6.6 fL (7.4-10.4); Platelet Count 163 10x3/uL (130-400); RBC Distribution Width 13.1 % (11.5-14.5); Red Blood Cell (RBC) Count 2.88 mill/uL (4.70-6.10); White Blood Cell (WBC) Count 3.3 10x3/uL (4.8-10.8)
[2023-03-16] MEDS: Vancomycin HCl 750 MG in Sodium Chloride 0.9% 250 ML 250 ML IVPB SCH ×2 (09:17→20:06)
[2023-03-16] MEDS: Furosemide 40 MG/4 ML VIAL SLOW IVP SCH (09:18)
[2023-03-16] MEDS: HYDROcodone/Acetaminophen 5/325 mg Tablet PO SCH ×3 (09:28→20:05)
[2023-03-16] MEDS: Empagliflozin 10 MG TAB PO SCH (09:29)
[2023-03-16] MEDS: Ferrous Sulfate 325 MG TAB PO SCH (09:29)
[2023-03-16] MEDS: Apixaban 5 MG TAB PO SCH ×2 (09:29→20:05)
[2023-03-16] MEDS: Saccharomyces boulardii 250 MG CAP PO SCH (09:29)
[2023-03-16] MEDS: Potassium Chloride 20 MEQ TAB PO SCH (09:30)
[2023-03-16] MEDS: Tamsulosin HCl 0.4 MG CAP PO SCH (09:30)
[2023-03-16] MEDS: Carvedilol 25 MG TAB PO SCH ×2 (09:30→16:26)
[2023-03-16] MEDS ORDERED: Pregabalin 50 MG CAP PO SCH (09:45)
[2023-03-16] MEDS: Pregabalin 50 MG CAP PO SCH ×3 (09:51→20:05)
[2023-03-16] MEDS: HYDROcodone/Acetaminophen 5/325 mg Tablet PO PRN (16:35)
[2023-03-16] MEDS: Lisinopril 20 MG TAB PO SCH (20:05)
[2023-03-17] MEDS: Meropenem 1 GM in Sodium Chloride 0.9% 100 ML IVPB SCH ×3 (04:55→20:45)
[2023-03-17] MEDS: Vancomycin HCl 750 MG in Sodium Chloride 0.9% 250 ML 250 ML IVPB SCH ×2 (08:59→20:45)
[2023-03-17] MEDS: Furosemide 40 MG TAB PO SCH (08:59)
[2023-03-17] MEDS: Carvedilol 25 MG TAB PO SCH ×2 (09:00→18:00)
[2023-03-17] MEDS: Potassium Chloride 20 MEQ TAB PO SCH (09:00)
[2023-03-17] MEDS: Ferrous Sulfate 325 MG TAB PO SCH (09:00)
[2023-03-17] MEDS: Saccharomyces boulardii 250 MG CAP PO SCH (09:03)
[2023-03-17] MEDS: Apixaban 5 MG TAB PO SCH ×2 (09:03→20:46)
[2023-03-17] MEDS: Tamsulosin HCl 0.4 MG CAP PO SCH (09:06)
[2023-03-17] MEDS: Empagliflozin 10 MG TAB PO SCH (09:07)
[2023-03-17] MEDS: Pregabalin 50 MG CAP PO SCH ×3 (09:08→20:45)
[2023-03-17] MEDS: HYDROcodone/Acetaminophen 5/325 mg Tablet PO SCH ×3 (09:12→20:46)
[2023-03-17] MEDS: Furosemide 40 MG/4 ML VIAL SLOW IVP SCH (09:13)
[2023-03-17] MEDS ORDERED: Senokot S 8.6-50 MG TAB PO PRN (10:43)
[2023-03-17] MEDS: Bisacodyl 5 MG TAB PO PRN (12:12)
[2023-03-17] MEDS: Lisinopril 20 MG TAB PO SCH (20:46)
[2023-03-18] MEDS: Meropenem 1 GM in Sodium Chloride 0.9% 100 ML IVPB SCH ×3 (04:55→21:01)
[2023-03-18] MEDS: Furosemide 40 MG TAB PO SCH ×2 (07:58→08:20)
[2023-03-18] MEDS: Vancomycin HCl 750 MG in Sodium Chloride 0.9% 250 ML 250 ML IVPB SCH ×2 (08:15→21:00)
[2023-03-18] MEDS: Tamsulosin HCl 0.4 MG CAP PO SCH (08:19)
[2023-03-18] MEDS: Potassium Chloride 20 MEQ TAB PO SCH (08:19)
[2023-03-18] MEDS: Saccharomyces boulardii 250 MG CAP PO SCH (08:20)
[2023-03-18] MEDS: Bisacodyl 5 MG TAB PO PRN (08:20)
[2023-03-18] MEDS: Empagliflozin 10 MG TAB PO SCH (08:20)
[2023-03-18] MEDS: HYDROcodone/Acetaminophen 5/325 mg Tablet PO SCH ×3 (08:21→21:00)
[2023-03-18] MEDS: Pregabalin 50 MG CAP PO SCH ×3 (08:22→21:44)
[2023-03-18] MEDS: Carvedilol 25 MG TAB PO SCH ×2 (08:22→16:38)
[2023-03-18] MEDS: Ferrous Sulfate 325 MG TAB PO SCH (08:22)
[2023-03-18] MEDS: Lisinopril 20 MG TAB PO SCH (20:59)
[2023-03-18] MEDS ORDERED: Pregabalin 25 MG CAP PO SCH (21:15)
[2023-03-19] MEDS: Meropenem 1 GM in Sodium Chloride 0.9% 100 ML IVPB SCH ×3 (04:59→21:55)
[2023-03-19] MEDS: Furosemide 40 MG TAB PO SCH (08:30)
[2023-03-19] MEDS: Potassium Chloride 20 MEQ TAB PO SCH (08:31)
[2023-03-19] MEDS: Carvedilol 25 MG TAB PO SCH ×2 (08:31→19:12)
[2023-03-19] MEDS: Empagliflozin 10 MG TAB PO SCH (08:31)
[2023-03-19] MEDS: Saccharomyces boulardii 250 MG CAP PO SCH (08:31)
[2023-03-19] MEDS: Tamsulosin HCl 0.4 MG CAP PO SCH (08:31)
[2023-03-19] MEDS: Ferrous Sulfate 325 MG TAB PO SCH (08:31)
[2023-03-19] MEDS: HYDROcodone/Acetaminophen 5/325 mg Tablet PO SCH ×3 (08:32→20:43)
[2023-03-19] MEDS: Vancomycin HCl 750 MG in Sodium Chloride 0.9% 250 ML 250 ML IVPB SCH ×2 (08:34→20:44)
[2023-03-19] MEDS: Pregabalin 50 MG CAP PO SCH ×3 (10:48→20:42)
[2023-03-19] MEDS: Bisacodyl 5 MG TAB PO PRN (12:51)
[2023-03-19] MEDS: Lisinopril 20 MG TAB PO SCH (20:44)
[2023-03-20] MEDS: Meropenem 1 GM in Sodium Chloride 0.9% 100 ML IVPB SCH ×2 (03:59→17:43)
[2023-03-20 05:24] VITALS: BMI 33.5
[2023-03-20] MEDS: Vancomycin HCl 750 MG in Sodium Chloride 0.9% 250 ML 250 ML IVPB SCH (07:27)
[2023-03-20] MEDS: Carvedilol 25 MG TAB PO SCH ×2 (07:28→17:44)
[2023-03-20] MEDS: Pregabalin 50 MG CAP PO SCH ×2 (07:28→17:44)
[2023-03-20] MEDS: Furosemide 40 MG TAB PO SCH (07:29)
[2023-03-20] MEDS: HYDROcodone/Acetaminophen 5/325 mg Tablet PO SCH ×2 (07:29→17:44)
[2023-03-20] MEDS: Tamsulosin HCl 0.4 MG CAP PO SCH (07:29)
[2023-03-20] MEDS: Potassium Chloride 20 MEQ TAB PO SCH (07:30)
[2023-03-20] MEDS: Saccharomyces boulardii 250 MG CAP PO SCH (07:30)
[2023-03-20] MEDS: Ferrous Sulfate 325 MG TAB PO SCH (07:30)
[2023-03-20 08:46] VITALS: TEMP 99.9
[2023-03-20 16:33] VITALS: BP 167/80
[2023-03-20] MEDS ORDERED: Lisinopril 20 MG TAB PO SCH (21:00)
== END 2023-03-21 18:15 | disposition critical access hospital (66) | DRG 561 ==
LOC: NAV ACUTE 15:57 → UNDOADMIN 15:57
PROVIDERS: ADMIT Family Medicine; ATTEND Family Medicine
DX: T84.51XA Infection and inflammatory reaction due to internal right hip prosthesis, initial encounter (principal); I48.0 Paroxysmal atrial fibrillation; N18.2 Chronic kidney disease, stage 2 (mild); I12.9 Hypertensive chronic kidney disease with stage 1 through stage 4 chronic kidney disease, or unspecified chronic kidney disease; I73.9 Peripheral vascular disease, unspecified; I25.10 Atherosclerotic heart disease of native coronary artery without angina pectoris; F17.210 Nicotine dependence, cigarettes, uncomplicated; R53.81 Other malaise; N40.1 Benign prostatic hyperplasia with lower urinary tract symptoms; R33.8 Other retention of urine; D50.0 Iron deficiency anemia secondary to blood loss (chronic); G89.29 Other chronic pain; Y83.8 Other surgical procedures as the cause of abnormal reaction of the patient, or of later complication, without mention of misadventure at the time of the procedure; K59.00 Constipation, unspecified; E87.6 Hypokalemia; R60.0 Localized edema; Z98.890 Other specified postprocedural states
CPT/HCPCS: 36415; 36416; 80048; 80053; 80202; 82565; 85025; 86140; J1940; J2185; J3370; J3490; J7050

== ENCOUNTER 2023-05-23 08:45 | Inpatient (IN) | payer OTHER, MEDICAID ==
[2023-05-23] MEDS ORDERED: Mag-Al Plus 1200/1200/120 MG (30 mL) UDCUP PO PRN (15:07)
[2023-05-23] MEDS ORDERED: Ondansetron ODT 4 MG TAB SL PRN (15:11)
[2023-05-23] MEDS ORDERED: Senokot S 8.6-50 MG TAB PO PRN (15:11)
[2023-05-23] MEDS ORDERED: [UNRECOGNIZED DRUG - OTHER] IV SCH (15:15)
[2023-05-23] MEDS ORDERED: DAPTOMYCIN IV SCH (15:15)
[2023-05-23] MEDS ORDERED: SOD CHLOR 0.9% IV SCH (15:15)
[2023-05-23] MEDS: CeleCOXIB 100 MG CAP PO SCH (20:31)
[2023-05-23] MEDS: Famotidine 20 MG TAB PO SCH (20:31)
[2023-05-23] MEDS: Pregabalin 50 MG CAP PO SCH (20:31)
[2023-05-23] MEDS: Metoprolol Tartrate 50 MG TAB PO SCH (20:32)
[2023-05-23] MEDS: Apixaban 2.5 MG TAB PO SCH (20:32)
[2023-05-23] MEDS: oxyCODONE 5 MG TAB PO PRN (20:34)
[2023-05-24] MEDS: Acetaminophen 325 MG TAB PO PRN (00:22)
[2023-05-24 06:05] LABS: #Basophils 0.1 thou/uL (0.0-0.2); #Eosinphils 0.2 thou/uL (0.0-0.7); #Lymphocytes 0.9 thou/uL (1.20-3.40); #Monocytes 1.1 thou/uL (0.11-0.59); %Basophils 1.1 % (0.0-1.0); %Eosinophils 3.3 % (0.0-10.0); %Lymphocytes 17.3 % (21.0-51.0); %Monocytes 20.2 % (0.0-10.0); Hemoglobin 8.3 g/dL (14.0-18.0); Mean Corpuscular HGB CONC 33.1 g/dL (32.0-36.0); Mean Corpuscular Hemoglobin 30.7 pg (27.0-31.0); Mean Corpuscular Volume 92.9 fl (78.0-98.0); Mean Platelet Volume 8.8 fL (7.4-10.4); Platelet Count 93 10x3/uL (130-400); RBC Distribution Width 15.9 % (11.5-14.5); Red Blood Cell (RBC) Count 2.69 mill/uL (4.70-6.10); White Blood Cell (WBC) Count 5.2 10x3/uL (4.8-10.8)
[2023-05-24 06:10] LABS: ALT (SGPT) 12 U/L (8-55); AST (SGOT) 22 U/L (5-34); Albumin 2.6 g/dL (3.4-4.8); Alkaline Phosphatase 74 U/L (40-110); Anion Gap 8 mmol/L (10-20); BUN (Urea Nitrogen) 21 mg/dL (8.4-25.7); Calc. Creatinine Clearance 127 mL/min (70-130); Calcium 8.4 mg/dL (7.8-10.44); Carbon Dioxide 27 mmol/L (23-31); Chloride 108 mmol/L (98-107); Estimated GFR 93; Globulin 1.6 g/dL (2.4-3.5); Glucose 84 mg/dL (83-110); Protein, Total 4.2 g/dL (5.8-8.1); Sodium 139 mmol/L (136-145)
[2023-05-24] MEDS: Ferrous Sulfate 325 MG TAB PO SCH (09:47)
[2023-05-24] MEDS: Calcium Carbonate 500 MG TAB PO SCH (09:50)
[2023-05-24] MEDS: Potassium Chloride 20 MEQ TAB PO SCH (09:53)
[2023-05-24] MEDS: Furosemide 40 MG TAB PO SCH (09:54)
[2023-05-24] MEDS: Tamsulosin HCl 0.4 MG CAP PO SCH (09:55)
[2023-05-24] MEDS: Nystatin Powder 15 GM BOT TOP SCH (09:58)
[2023-05-24] MEDS: Polyethylene Glycol 3350 17 GM Packet PO SCH (09:58)
[2023-05-24] MEDS: Floranex 1 GM Packet PO SCH (09:59)
[2023-05-24] MEDS: Apixaban 5 MG TAB PO SCH (20:32)
[2023-05-24] MEDS ORDERED: Apixaban 2.5 MG TAB PO SCH (21:00)
[2023-05-25] MEDS: Furosemide 40 MG TAB PO SCH (08:36)
[2023-05-26] MEDS: CeleCOXIB 100 MG CAP ONE ×2 (20:35)
[2023-05-27] MEDS: CeleCOXIB 100 MG CAP ONE ×2 (09:30→21:23)
[2023-05-27] MEDS: Fluconazole 100 MG TAB PO SCH (10:06)
[2023-05-28] MEDS: Furosemide 40 MG TAB PO SCH (14:56)
[2023-05-28] MEDS: Pregabalin 25 MG CAP PO SCH ×2 (15:42→20:28)
[2023-05-29 06:00] LABS: #Basophils 0.1 thou/uL (0.0-0.2); #Eosinphils 0.2 thou/uL (0.0-0.7); #Lymphocytes 0.8 thou/uL (1.20-3.40); #Monocytes 0.7 thou/uL (0.11-0.59); %Basophils 1.3 % (0.0-1.0); %Eosinophils 5.1 % (0.0-10.0); %Lymphocytes 15.7 % (21.0-51.0); Hematocrit 23.4 % (42.0-52.0); Hemoglobin 7.4 g/dL (14.0-18.0); Mean Corpuscular HGB CONC 31.8 g/dL (32.0-36.0); Mean Corpuscular Hemoglobin 30.3 pg (27.0-31.0); Mean Corpuscular Volume 95.3 fl (78.0-98.0); Mean Platelet Volume 7.5 fL (7.4-10.4); Platelet Count 134 10x3/uL (130-400); RBC Distribution Width 16.8 % (11.5-14.5); Red Blood Cell (RBC) Count 2.46 mill/uL (4.70-6.10); White Blood Cell (WBC) Count 4.8 10x3/uL (4.8-10.8)
[2023-05-29 06:11] LABS: Anion Gap 9 mmol/L (10-20); BUN (Urea Nitrogen) 24 mg/dL (8.4-25.7); Calc. Creatinine Clearance 103 mL/min (70-130); Calcium 7.8 mg/dL (7.8-10.44); Carbon Dioxide 27 mmol/L (23-31); Chloride 109 mmol/L (98-107); Estimated GFR 79; Glucose 83 mg/dL (83-110); Sodium 141 mmol/L (136-145)
[2023-05-31] MEDS: Pregabalin 50 MG CAP PO SCH ×3 (10:25→16:01)
[2023-06-01 05:55] LABS: #Basophils 0.1 thou/uL (0.0-0.2); #Eosinphils 0.3 thou/uL (0.0-0.7); #Lymphocytes 0.8 thou/uL (1.20-3.40); #Monocytes 0.7 thou/uL (0.11-0.59); #Neutrophils 3.2 thou/uL (1.40-6.50); %Basophils 1.2 % (0.0-1.0); %Eosinophils 6.7 % (0.0-10.0); %Lymphocytes 15.2 % (21.0-51.0); %Monocytes 14.4 % (0.0-10.0); %Neutrophils 62.5 % (42.0-75.0); Hematocrit 23.5 % (42.0-52.0); Hemoglobin 7.6 g/dL (14.0-18.0); Mean Corpuscular HGB CONC 32.5 g/dL (32.0-36.0); Mean Corpuscular Hemoglobin 30.9 pg (27.0-31.0); Platelet Count 130 10x3/uL (130-400); RBC Distribution Width 16.4 % (11.5-14.5); Red Blood Cell (RBC) Count 2.47 mill/uL (4.70-6.10); White Blood Cell (WBC) Count 5.1 10x3/uL (4.8-10.8)
[2023-06-01 06:13] LABS: ALT (SGPT) 14 U/L (8-55); AST (SGOT) 25 U/L (5-34); Albumin 2.8 g/dL (3.4-4.8); Alkaline Phosphatase 105 U/L (40-110); Anion Gap 11 mmol/L (10-20); BUN (Urea Nitrogen) 26 mg/dL (8.4-25.7); Bilirubin, Total 0.7 mg/dL (0.2-1.2); CRP (Inflammatory) 1.64 mg/dL (= or < 0.5); Calc. Creatinine Clearance 97 mL/min (70-130); Calcium 8.1 mg/dL (7.8-10.44); Carbon Dioxide 25 mmol/L (23-31); Chloride 109 mmol/L (98-107); Estimated GFR 72; Globulin 1.9 g/dL (2.4-3.5); Glucose 81 mg/dL (83-110); Protein, Total 4.7 g/dL (5.8-8.1); Sodium 141 mmol/L (136-145)
[2023-06-03 05:17] LABS: #Eosinphils 0.4 thou/uL (0.0-0.7); #Lymphocytes 0.8 thou/uL (1.20-3.40); #Monocytes 0.7 thou/uL (0.11-0.59); #Neutrophils 2.7 thou/uL (1.40-6.50); %Eosinophils 7.6 % (0.0-10.0); %Lymphocytes 17.7 % (21.0-51.0); %Monocytes 15.9 % (0.0-10.0); %Neutrophils 57.8 % (42.0-75.0); Hematocrit 23.8 % (42.0-52.0); Hemoglobin 7.6 g/dL (14.0-18.0); Mean Corpuscular HGB CONC 31.9 g/dL (32.0-36.0); Mean Corpuscular Hemoglobin 30.2 pg (27.0-31.0); Mean Corpuscular Volume 94.7 fl (78.0-98.0); Mean Platelet Volume 7.7 fL (7.4-10.4); Platelet Count 125 10x3/uL (130-400); RBC Distribution Width 16.3 % (11.5-14.5); Red Blood Cell (RBC) Count 2.51 mill/uL (4.70-6.10); White Blood Cell (WBC) Count 4.6 10x3/uL (4.8-10.8)
[2023-06-03 05:28] LABS: Anion Gap 10 mmol/L (10-20); BUN (Urea Nitrogen) 24 mg/dL (8.4-25.7); Calc. Creatinine Clearance 103 mL/min (70-130); Calcium 8.1 mg/dL (7.8-10.44); Carbon Dioxide 27 mmol/L (23-31); Chloride 108 mmol/L (98-107); Estimated GFR 77; Glucose 79 mg/dL (83-110); Potassium 3.9 mmol/L (3.5-5.1); Sodium 141 mmol/L (136-145)
[2023-06-03] MEDS: Metoprolol Tartrate 25 MG TAB ONE (08:37)
[2023-06-03] MEDS: Calcium Carbonate 500 MG TAB PO SCH (11:55)
[2023-06-03] MEDS: Pregabalin 50 MG CAP ONE ×2 (14:41→22:42)
[2023-06-03] MEDS: Metoprolol Tartrate 25 MG TAB PO SCH (20:57)
[2023-06-04] MEDS: Melatonin 3 MG TAB PO SCH ×2 (00:06→21:14)
[2023-06-04] MEDS: hydrOXYzine 25 MG TAB PO PRN (22:04)
[2023-06-06 06:04] LABS: #Basophils 0.1 thou/uL (0.0-0.2); #Eosinphils 0.3 thou/uL (0.0-0.7); #Lymphocytes 0.6 thou/uL (1.20-3.40); #Monocytes 0.6 thou/uL (0.11-0.59); #Neutrophils 2.2 thou/uL (1.40-6.50); %Eosinophils 8.6 % (0.0-10.0); %Lymphocytes 15.8 % (21.0-51.0); %Monocytes 15.7 % (0.0-10.0); %Neutrophils 57.9 % (42.0-75.0); Hematocrit 25.7 % (42.0-52.0); Hemoglobin 8.1 g/dL (14.0-18.0); Mean Corpuscular HGB CONC 31.6 g/dL (32.0-36.0); Mean Corpuscular Hemoglobin 30.4 pg (27.0-31.0); Mean Platelet Volume 7.3 fL (7.4-10.4); Platelet Count 115 10x3/uL (130-400); RBC Distribution Width 16.8 % (11.5-14.5); Red Blood Cell (RBC) Count 2.68 mill/uL (4.70-6.10); White Blood Cell (WBC) Count 3.8 10x3/uL (4.8-10.8)
[2023-06-06 06:15] LABS: Anion Gap 10 mmol/L (10-20); BUN (Urea Nitrogen) 24 mg/dL (8.4-25.7); Calc. Creatinine Clearance 80 mL/min (70-130); Calcium 8.7 mg/dL (7.8-10.44); Carbon Dioxide 29 mmol/L (23-31); Chloride 107 mmol/L (98-107); Estimated GFR 57; Glucose 82 mg/dL (83-110); Potassium 3.9 mmol/L (3.5-5.1); Sodium 142 mmol/L (136-145)
[2023-06-07] MEDS: Furosemide 40 MG TAB PO SCH (17:37)
[2023-06-07] MEDS: Pregabalin 50 MG CAP PO SCH (17:38)
[2023-06-07 18:32] LABS: Bilirubin Negative (Negative); Blood, Urine Negative (Negative); Clarity Clear (Clear); Glucose, Urine (Dipstick) Negative (Negative); Ketone, Urine Negative (Negative); Leukocyte Trace (Negative); Nitrite Negative (Negative); Protein, Urine (Dipstick) Negative (Neg-Trace); Specific Gravity, Urine 1.015 (1.005-1.030); Urobilinogen 0.2 mg/dL (Less than 2)
[2023-06-07 18:36] LABS: CAUTI Indications for Culture Alt mental st,lethar; RBC/HPF 0-3 HPF (0-3); WBC/HPF 0-3 HPF (0-3)
[2023-06-07 18:37] LABS: Bacteria/HPF None Seen HPF (None Seen); Squamous Epithelial None Seen HPF (0-3); Urine Culture Reflex No No
[2023-06-08 06:05] LABS: #Basophils 0.1 thou/uL (0.0-0.2); #Eosinphils 0.2 thou/uL (0.0-0.7); #Lymphocytes 0.3 thou/uL (1.20-3.40); #Monocytes 0.6 thou/uL (0.11-0.59); #Neutrophils 1.5 thou/uL (1.40-6.50); %Basophils 2.1 % (0.0-1.0); %Eosinophils 8.1 % (0.0-10.0); %Lymphocytes 10.1 % (21.0-51.0); %Monocytes 22.5 % (0.0-10.0); %Neutrophils 57.2 % (42.0-75.0); Hematocrit 27.4 % (42.0-52.0); Hemoglobin 8.6 g/dL (14.0-18.0); Mean Corpuscular HGB CONC 31.4 g/dL (32.0-36.0); Mean Corpuscular Hemoglobin 30.5 pg (27.0-31.0); Mean Corpuscular Volume 97.3 fl (78.0-98.0); Mean Platelet Volume 8.4 fL (7.4-10.4); Platelet Count 115 10x3/uL (130-400); RBC Distribution Width 16.1 % (11.5-14.5); Red Blood Cell (RBC) Count 2.82 mill/uL (4.70-6.10); White Blood Cell (WBC) Count 2.5 10x3/uL (4.8-10.8)
[2023-06-08 06:17] LABS: ALT (SGPT) 14 U/L (8-55); AST (SGOT) 23 U/L (5-34); Albumin 3.4 g/dL (3.4-4.8); Alkaline Phosphatase 126 U/L (40-110); Anion Gap 13 mmol/L (10-20); BUN (Urea Nitrogen) 21 mg/dL (8.4-25.7); Bilirubin, Total 1.3 mg/dL (0.2-1.2); CRP (Inflammatory) 1.25 mg/dL (= or < 0.5); Calc. Creatinine Clearance 73 mL/min (70-130); Calcium 8.8 mg/dL (7.8-10.44); Carbon Dioxide 29 mmol/L (23-31); Chloride 107 mmol/L (98-107); Estimated GFR 54; Globulin 2.3 g/dL (2.4-3.5); Glucose 77 mg/dL (83-110); Potassium 3.8 mmol/L (3.5-5.1); Protein, Total 5.7 g/dL (5.8-8.1); Sodium 145 mmol/L (136-145)
[2023-06-09 07:03] LABS: Anion Gap 13 mmol/L (10-20); BUN (Urea Nitrogen) 22 mg/dL (8.4-25.7); Calc. Creatinine Clearance 67 mL/min (70-130); Calcium 8.7 mg/dL (7.8-10.44); Carbon Dioxide 26 mmol/L (23-31); Chloride 107 mmol/L (98-107); Estimated GFR 48; Glucose 76 mg/dL (83-110); Potassium 3.9 mmol/L (3.5-5.1); Sodium 142 mmol/L (136-145)
[2023-06-09] MEDS: Benzonatate 100 MG CAP PO SCH (11:10)
[2023-06-09] MEDS: Furosemide 20 MG TAB PO SCH (13:55)
[2023-06-10 06:42] LABS: #Basophils 0.1 thou/uL (0.0-0.2); #Lymphocytes 0.7 thou/uL (1.20-3.40); #Monocytes 0.6 thou/uL (0.11-0.59); #Neutrophils 1.3 thou/uL (1.40-6.50); %Basophils 2.2 % (0.0-1.0); %Eosinophils 1.9 % (0.0-10.0); Hematocrit 27.3 % (42.0-52.0); Hemoglobin 8.6 g/dL (14.0-18.0); Mean Corpuscular HGB CONC 31.7 g/dL (32.0-36.0); Mean Corpuscular Hemoglobin 30.6 pg (27.0-31.0); Mean Corpuscular Volume 96.6 fl (78.0-98.0); Mean Platelet Volume 9.2 fL (7.4-10.4); Platelet Count 103 10x3/uL (130-400); RBC Distribution Width 16.3 % (11.5-14.5); Red Blood Cell (RBC) Count 2.83 mill/uL (4.70-6.10); White Blood Cell (WBC) Count 2.7 10x3/uL (4.8-10.8)
[2023-06-10 06:44] LABS: Anion Gap 13 mmol/L (10-20); BUN (Urea Nitrogen) 21 mg/dL (8.4-25.7); Calc. Creatinine Clearance 80 mL/min (70-130); Calcium 8.7 mg/dL (7.8-10.44); Carbon Dioxide 25 mmol/L (23-31); Chloride 107 mmol/L (98-107); Estimated GFR 59; Glucose 78 mg/dL (83-110); Potassium 3.8 mmol/L (3.5-5.1); Sodium 141 mmol/L (136-145)
[2023-06-10 07:03] LABS: %Neutrophils 49.5 % (42.0-75.0)
[2023-06-11 06:11] LABS: Anion Gap 12 mmol/L (10-20); BUN (Urea Nitrogen) 18 mg/dL (8.4-25.7); Calc. Creatinine Clearance 106 mL/min (70-130); Calcium 8.3 mg/dL (7.8-10.44); Carbon Dioxide 26 mmol/L (23-31); Chloride 107 mmol/L (98-107); Estimated GFR 82; Glucose 78 mg/dL (83-110); Potassium 3.6 mmol/L (3.5-5.1); Sodium 141 mmol/L (136-145)
[2023-06-11] MEDS: Calcium Carbonate 500 MG ChewTAB ONE (12:39)
[2023-06-11] MEDS: Furosemide 40 MG TAB ONE (12:55)
[2023-06-11] MEDS: Benzonatate 100 MG CAP ONE (15:57)
[2023-06-12 06:08] LABS: Anion Gap 11 mmol/L (10-20); BUN (Urea Nitrogen) 14 mg/dL (8.4-25.7); Calc. Creatinine Clearance 113 mL/min (70-130); Calcium 8.4 mg/dL (7.8-10.44); Carbon Dioxide 25 mmol/L (23-31); Chloride 108 mmol/L (98-107); Estimated GFR 89; Glucose 82 mg/dL (83-110); Potassium 3.4 mmol/L (3.5-5.1); Sodium 141 mmol/L (136-145)
[2023-06-12] MEDS: Fluticasone Propionate Nasal Spray 16 gm Bottle NASAL SCH (09:49)
[2023-06-12] MEDS: guaiFENesin ER 600 MG TAB PO SCH (09:51)
[2023-06-13 06:13] LABS: Anion Gap 11 mmol/L (10-20); BUN (Urea Nitrogen) 13 mg/dL (8.4-25.7); Calc. Creatinine Clearance 115 mL/min (70-130); Calcium 8.6 mg/dL (7.8-10.44); Carbon Dioxide 25 mmol/L (23-31); Chloride 110 mmol/L (98-107); Estimated GFR 90; Glucose 81 mg/dL (83-110); Potassium 3.5 mmol/L (3.5-5.1); Sodium 142 mmol/L (136-145)
[2023-06-13] MEDS: CeleCOXIB 100 MG CAP PO PRN (11:54)
[2023-06-14 06:13] LABS: Anion Gap 11 mmol/L (10-20); BUN (Urea Nitrogen) 15 mg/dL (8.4-25.7); Calc. Creatinine Clearance 107 mL/min (70-130); Calcium 8.8 mg/dL (7.8-10.44); Carbon Dioxide 26 mmol/L (23-31); Chloride 110 mmol/L (98-107); Estimated GFR 83; Glucose 81 mg/dL (83-110); Potassium 3.5 mmol/L (3.5-5.1); Sodium 143 mmol/L (136-145)
[2023-06-14 15:44] VITALS: BMI 32.1
[2023-06-15 06:00] LABS: Hematocrit 26.3 % (42.0-52.0); Hemoglobin 8.6 g/dL (14.0-18.0); Platelet Count 120 10x3/uL (130-400)
[2023-06-15 10:21] VITALS: BP 153/95; TEMP 97.7
== END 2023-06-15 18:35 | DRG 560 ==
LOC: NAV ACUTE 18:09
PROVIDERS: ADMIT Family Medicine; ATTEND Family Medicine
DX: T84.51XA Infection and inflammatory reaction due to internal right hip prosthesis, initial encounter (principal); D61.818 Other pancytopenia; N17.9 Acute kidney failure, unspecified; I48.91 Unspecified atrial fibrillation; R53.81 Other malaise; N40.0 Benign prostatic hyperplasia without lower urinary tract symptoms; N18.30 Chronic kidney disease, stage 3 unspecified; I12.9 Hypertensive chronic kidney disease with stage 1 through stage 4 chronic kidney disease, or unspecified chronic kidney disease; B35.6 Tinea cruris; D64.9 Anemia, unspecified; D69.6 Thrombocytopenia, unspecified; R05.9 Cough, unspecified; Z98.890 Other specified postprocedural states; Z98.49 Cataract extraction status, unspecified eye; Z82.49 Family history of ischemic heart disease and other diseases of the circulatory system; Z79.899 Other long term (current) drug therapy; Z79.01 Long term (current) use of anticoagulants
CPT/HCPCS: 36415; 70450; 71045; 80048; 80053; 81001; 82550; 85014; 85018; 85025; 85049; 86140; 87086; J0878; J3490

== ENCOUNTER 2023-11-07 09:20 | Inpatient (IN) | payer OTHER ==
[2023-11-07] MEDS ORDERED: Acetaminophen 325 MG TAB PO PRN (10:16)
[2023-11-07] MEDS: Methocarbamol 500 MG TAB PO SCH (16:13)
[2023-11-07] MEDS: Potassium Chloride 20 MEQ TAB PO SCH (17:08)
[2023-11-07] MEDS: Pregabalin 50 MG CAP PO SCH (21:28)
[2023-11-07] MEDS: Famotidine 20 MG TAB PO SCH (21:31)
[2023-11-07] MEDS: Apixaban 2.5 MG TAB PO SCH (21:31)
[2023-11-07] MEDS: Clindamycin 150 MG CAP PO SCH (21:31)
[2023-11-07] MEDS: Carvedilol 25 MG TAB PO SCH (21:32)
[2023-11-08] MEDS: oxyCODONE 5 MG TAB PO PRN (01:18)
[2023-11-08 06:04] LABS: ALT (SGPT) 13 U/L (8-55); AST (SGOT) 18 U/L (5-34); Albumin 3.1 g/dL (3.4-4.8); Alkaline Phosphatase 67 U/L (40-110); Anion Gap 10 mmol/L (10-20); BUN (Urea Nitrogen) 15 mg/dL (8.4-25.7); Bilirubin, Total 0.6 mg/dL (0.2-1.2); Calc. Creatinine Clearance 96 mL/min (70-130); Calcium 8.7 mg/dL (7.8-10.44); Carbon Dioxide 28 mmol/L (23-31); Chloride 106 mmol/L (98-107); Estimated GFR 70; Globulin 2.3 g/dL (2.4-3.5); Glucose 87 mg/dL (83-110); Potassium 4.9 mmol/L (3.5-5.1); Protein, Total 5.4 g/dL (5.8-8.1); Sodium 139 mmol/L (136-145)
[2023-11-08 06:21] LABS: Eosinophils 5 % (0-10); Hematocrit 26.6 % (42.0-52.0); Hemoglobin 8.3 g/dL (14.0-18.0); Lymphocytes 16 % (21-51); MDiff Complete? YES; Mean Corpuscular HGB CONC 31.1 g/dL (32.0-36.0); Mean Corpuscular Volume 99.8 fl (78.0-98.0); Mean Platelet Volume 6.1 fL (7.4-10.4); Monocytes 17 % (0-10); Neutrophil 62 % (42-75); Platelet Adequacy Comment Appears Adequate; Platelet Count 163 10x3/uL (130-400); RBC Distribution Width 14.6 % (11.5-14.5); Red Blood Cell (RBC) Count 2.67 mill/uL (4.70-6.10); White Blood Cell (WBC) Count 6.9 10x3/uL (4.8-10.8)
[2023-11-08] MEDS: Polyethylene Glycol 3350 17 GM Packet PO SCH (08:04)
[2023-11-08] MEDS: Lisinopril 20 MG TAB PO SCH (08:07)
[2023-11-08] MEDS: Empagliflozin 10 MG TAB PO SCH (08:08)
[2023-11-08] MEDS: Fish Oil 1,000 MG CAP PO SCH (08:09)
[2023-11-08] MEDS: Tamsulosin HCl 0.4 MG CAP PO SCH (08:09)
[2023-11-08] MEDS: Furosemide 20 MG TAB PO SCH (08:09)
[2023-11-08] MEDS: Ferrous Sulfate 325 MG TAB PO SCH (08:09)
[2023-11-08] MEDS: Carvedilol 25 MG TAB PO SCH (08:20)
[2023-11-08] MEDS: Multivitamin W/ Minerals 1 TAB PO SCH (08:25)
[2023-11-08] MEDS: Acetaminophen 325 MG TAB PO PRN (08:26)
[2023-11-08] MEDS: Cyanocobalamin (Vitamin B-12) 1,000 MCG TAB PO SCH (10:11)
[2023-11-08] MEDS: Melatonin 3 MG TAB PO SCH (21:57)
[2023-11-09 11:52] VITALS: BMI 33.4
[2023-11-10] MEDS: Ondansetron ODT 4 MG TAB SL PRN (07:47)
[2023-11-10] MEDS: Ferrous Sulfate 325 MG TAB PO SCH (08:59)
[2023-11-10] MEDS: Pantoprazole DR 40 MG TAB PO SCH (08:59)
[2023-11-10] MEDS: Methocarbamol 500 MG TAB PO PRN (09:04)
[2023-11-10] MEDS ORDERED: Bisacodyl 10 MG SUPP PR PRN (11:25)
[2023-11-10] MEDS: Bisacodyl 5 MG TAB PO PRN (12:20)
[2023-11-10] MEDS: Apixaban 5 MG TAB PO SCH (20:33)
[2023-11-11 03:38] VITALS: BMI 33.3
[2023-11-11 07:19] VITALS: BP 126/65; TEMP 98.2
[2023-11-11] MEDS: HYDROcodone/Acetaminophen 7.5/325 mg Tablet PO SCH (09:23)
[2023-11-11] MEDS: Furosemide 40 MG TAB PO SCH (09:24)
[2023-11-11] MEDS ORDERED: Furosemide 20 MG TAB PO SCH (14:00)
== END 2023-11-11 13:49 | disposition short-term general hospital (02) | DRG 561 ==
LOC: NAV ACUTE 13:40
PROVIDERS: ADMIT Student in an Organized Health Care Education/Training Program; ATTEND Student in an Organized Health Care Education/Training Program
DX: Z47.1 Aftercare following joint replacement surgery (principal); I48.0 Paroxysmal atrial fibrillation; N40.0 Benign prostatic hyperplasia without lower urinary tract symptoms; I73.9 Peripheral vascular disease, unspecified; D53.9 Nutritional anemia, unspecified; M48.02 Spinal stenosis, cervical region; K21.9 Gastro-esophageal reflux disease without esophagitis; N18.2 Chronic kidney disease, stage 2 (mild); I12.9 Hypertensive chronic kidney disease with stage 1 through stage 4 chronic kidney disease, or unspecified chronic kidney disease; Z79.899 Other long term (current) drug therapy; Z79.01 Long term (current) use of anticoagulants; Z98.49 Cataract extraction status, unspecified eye
CPT/HCPCS: 36415; 80053; 82565; 85025; Q0162

== ENCOUNTER 2023-11-11 20:52 | Inpatient (IN) | payer OTHER ==
[2023-11-11] MEDS ORDERED: Bisacodyl 10 MG SUPP PR PRN (21:05)
[2023-11-11] MEDS ORDERED: Acetaminophen 325 MG TAB PO PRN (21:07)
[2023-11-11] MEDS: Carvedilol 25 MG TAB PO SCH (21:51)
[2023-11-11] MEDS: Apixaban 2.5 MG TAB PO SCH (21:51)
[2023-11-11] MEDS: Melatonin 3 MG TAB PO SCH (23:09)
[2023-11-11] MEDS: oxyCODONE 5 MG TAB PO PRN (23:09)
[2023-11-12 05:55] LABS: #Basophils 0.1 thou/uL (0.0-0.2); #Eosinphils 0.1 thou/uL (0.0-0.7); #Lymphocytes 0.7 thou/uL (1.20-3.40); #Monocytes 0.9 thou/uL (0.11-0.59); #Neutrophils 8.3 thou/uL (1.40-6.50); %Basophils 1.1 % (0.0-1.0); %Eosinophils 0.8 % (0.0-10.0); %Lymphocytes 7.1 % (21.0-51.0); %Monocytes 8.9 % (0.0-10.0); %Neutrophils 82.1 % (42.0-75.0); Hematocrit 23.2 % (42.0-52.0); Hemoglobin 7.2 g/dL (14.0-18.0); Mean Corpuscular HGB CONC 31.1 g/dL (32.0-36.0); Mean Corpuscular Volume 99.9 fl (78.0-98.0); Mean Platelet Volume 6.3 fL (7.4-10.4); Platelet Count 173 10x3/uL (130-400); RBC Distribution Width 14.5 % (11.5-14.5); Red Blood Cell (RBC) Count 2.33 mill/uL (4.70-6.10); White Blood Cell (WBC) Count 10.2 10x3/uL (4.8-10.8)
[2023-11-12 06:06] LABS: Anion Gap 11 mmol/L (10-20); BUN (Urea Nitrogen) 15 mg/dL (8.4-25.7); Calc. Creatinine Clearance 79 mL/min (70-130); Carbon Dioxide 27 mmol/L (23-31); Chloride 102 mmol/L (98-107); Potassium 4.3 mmol/L (3.5-5.1); Sodium 136 mmol/L (136-145)
[2023-11-12 06:07] LABS: ALT (SGPT) 12 U/L (8-55); AST (SGOT) 14 U/L (5-34); Albumin 3.2 g/dL (3.4-4.8); Alkaline Phosphatase 80 U/L (40-110); Bilirubin, Total 0.8 mg/dL (0.2-1.2); Calcium 8.4 mg/dL (7.8-10.44); Estimated GFR 56; Globulin 2.3 g/dL (2.4-3.5); Glucose 106 mg/dL (83-110); Protein, Total 5.5 g/dL (5.8-8.1)
[2023-11-12] MEDS: Tamsulosin HCl 0.4 MG CAP PO SCH (07:53)
[2023-11-12] MEDS: Pregabalin 50 MG CAP PO SCH (07:53)
[2023-11-12] MEDS: Fish Oil 1,000 MG CAP PO SCH (07:54)
[2023-11-12] MEDS: Clindamycin 150 MG CAP PO SCH (07:55)
[2023-11-12] MEDS: Bisacodyl 5 MG TAB PO PRN (07:55)
[2023-11-12] MEDS: Multivitamin W/ Minerals 1 TAB PO SCH (07:55)
[2023-11-12] MEDS: Potassium Chloride 20 MEQ TAB PO SCH (07:56)
[2023-11-12] MEDS: Furosemide 20 MG TAB PO SCH (07:56)
[2023-11-12] MEDS: Carvedilol 25 MG TAB PO SCH ×2 (07:56→21:45)
[2023-11-12] MEDS: Polyethylene Glycol 3350 17 GM Packet PO SCH (07:57)
[2023-11-12] MEDS: Empagliflozin 10 MG TAB PO SCH (07:57)
[2023-11-12] MEDS: Ondansetron ODT 4 MG TAB SL PRN (08:01)
[2023-11-12] MEDS ORDERED: Carvedilol 25 MG TAB PO SCH (09:00)
[2023-11-12] MEDS ORDERED: Apixaban 5 MG TAB PO SCH (09:00)
[2023-11-12] MEDS: Cyanocobalamin (Vitamin B-12) 1,000 MCG TAB PO SCH ×2 (14:58→15:11)
[2023-11-12] MEDS: Pantoprazole DR 40 MG TAB PO SCH ×2 (14:59→15:11)
[2023-11-12 17:03] LABS: Hematocrit 23.2 % (42.0-52.0); Hemoglobin 7.2 g/dL (14.0-18.0); Platelet Count 168 10x3/uL (130-400)
[2023-11-13 05:57] LABS: #Basophils 0.1 thou/uL (0.0-0.2); #Eosinphils 0.2 thou/uL (0.0-0.7); #Lymphocytes 1.1 thou/uL (1.20-3.40); #Monocytes 1.1 thou/uL (0.11-0.59); #Neutrophils 7.1 thou/uL (1.40-6.50); %Basophils 0.8 % (0.0-1.0); %Eosinophils 2.2 % (0.0-10.0); %Lymphocytes 11.1 % (21.0-51.0); %Monocytes 11.6 % (0.0-10.0); %Neutrophils 74.3 % (42.0-75.0); Hematocrit 20.1 % (42.0-52.0); Hemoglobin 6.2 g/dL (14.0-18.0); Mean Platelet Volume 6.4 fL (7.4-10.4); Platelet Count 136 10x3/uL (130-400); RBC Distribution Width 14.4 % (11.5-14.5); Red Blood Cell (RBC) Count 2.01 mill/uL (4.70-6.10); White Blood Cell (WBC) Count 9.5 10x3/uL (4.8-10.8)
[2023-11-13] MEDS: Ferrous Sulfate 325 MG TAB PO SCH (08:17)
[2023-11-13 15:02] LABS: Hematocrit 24.9 % (42.0-52.0); Hemoglobin 7.7 g/dL (14.0-18.0)
[2023-11-14 06:08] LABS: #Basophils 0.1 thou/uL (0.0-0.2); #Eosinphils 0.3 thou/uL (0.0-0.7); %Basophils 1.3 % (0.0-1.0); %Eosinophils 3.2 % (0.0-10.0); %Lymphocytes 11.9 % (21.0-51.0); %Monocytes 11.5 % (0.0-10.0); Hematocrit 22.9 % (42.0-52.0); Hemoglobin 7.1 g/dL (14.0-18.0); Mean Corpuscular HGB CONC 31.1 g/dL (32.0-36.0); Mean Corpuscular Hemoglobin 29.9 pg (27.0-31.0); Mean Platelet Volume 6.3 fL (7.4-10.4); Platelet Count 147 10x3/uL (130-400); RBC Distribution Width 16.9 % (11.5-14.5); Red Blood Cell (RBC) Count 2.38 mill/uL (4.70-6.10); White Blood Cell (WBC) Count 8.4 10x3/uL (4.8-10.8)
[2023-11-14] MEDS: Calcium Carbonate 500 MG ChewTAB PO PRN (16:30)
[2023-11-14] MEDS: Pregabalin 200 MG CAPSULE PO SCH (16:30)
[2023-11-14] MEDS: Pantoprazole DR 40 MG TAB PO SCH (21:22)
[2023-11-15 06:04] LABS: #Basophils 0.1 thou/uL (0.0-0.2); #Eosinphils 0.2 thou/uL (0.0-0.7); #Lymphocytes 0.8 thou/uL (1.20-3.40); #Monocytes 0.9 thou/uL (0.11-0.59); #Neutrophils 5.4 thou/uL (1.40-6.50); %Basophils 1.7 % (0.0-1.0); %Eosinophils 2.9 % (0.0-10.0); %Monocytes 11.5 % (0.0-10.0); %Neutrophils 72.9 % (42.0-75.0); Hematocrit 21.5 % (42.0-52.0); Hemoglobin 6.9 g/dL (14.0-18.0); Mean Corpuscular HGB CONC 31.9 g/dL (32.0-36.0); Mean Corpuscular Hemoglobin 30.4 pg (27.0-31.0); Mean Corpuscular Volume 95.1 fl (78.0-98.0); Platelet Count 158 10x3/uL (130-400); RBC Distribution Width 16.1 % (11.5-14.5); Red Blood Cell (RBC) Count 2.26 mill/uL (4.70-6.10); White Blood Cell (WBC) Count 7.4 10x3/uL (4.8-10.8)
[2023-11-15 06:20] LABS: ALT (SGPT) 11 U/L (8-55); AST (SGOT) 16 U/L (5-34); Albumin 2.8 g/dL (3.4-4.8); Alkaline Phosphatase 71 U/L (40-110); Anion Gap 10 mmol/L (10-20); BUN (Urea Nitrogen) 18 mg/dL (8.4-25.7); Bilirubin, Total 0.9 mg/dL (0.2-1.2); Calc. Creatinine Clearance 86 mL/min (70-130); Calcium 8.6 mg/dL (7.8-10.44); Carbon Dioxide 26 mmol/L (23-31); Chloride 105 mmol/L (98-107); Estimated GFR 63; Globulin 2.5 g/dL (2.4-3.5); Glucose 96 mg/dL (83-110); Potassium 4.2 mmol/L (3.5-5.1); Protein, Total 5.3 g/dL (5.8-8.1); Sodium 137 mmol/L (136-145)
[2023-11-15 20:11] LABS: Hemoglobin 8.4 g/dL (14.0-18.0)
[2023-11-16] MEDS: Furosemide 20 MG TAB PO SCH (08:15)
[2023-11-16 10:07] LABS: #Basophils 0.1 thou/uL (0.0-0.2); #Eosinphils 0.2 thou/uL (0.0-0.7); #Lymphocytes 0.6 thou/uL (1.20-3.40); #Monocytes 1.1 thou/uL (0.11-0.59); #Neutrophils 4.2 thou/uL (1.40-6.50); %Basophils 1.5 % (0.0-1.0); %Eosinophils 3.3 % (0.0-10.0); %Lymphocytes 9.7 % (21.0-51.0); %Monocytes 17.1 % (0.0-10.0); %Neutrophils 68.4 % (42.0-75.0); Hemoglobin 8.1 g/dL (14.0-18.0); Mean Corpuscular Hemoglobin 28.9 pg (27.0-31.0); Mean Corpuscular Volume 96.2 fl (78.0-98.0); Mean Platelet Volume 6.6 fL (7.4-10.4); Platelet Count 167 10x3/uL (130-400); RBC Distribution Width 16.4 % (11.5-14.5); White Blood Cell (WBC) Count 6.1 10x3/uL (4.8-10.8)
[2023-11-16] MEDS ORDERED: Furosemide 20 MG TAB PO SCH (14:00)
[2023-11-16] MEDS: Furosemide 40 MG TAB PO SCH (14:41)
[2023-11-17] MEDS: Methocarbamol 500 MG TAB PO PRN (01:57)
[2023-11-17] MEDS: Apixaban 2.5 MG TAB PO SCH (08:26)
[2023-11-17] MEDS: Acetaminophen 325 MG TAB PO PRN (10:46)
[2023-11-17 16:10] LABS: #Basophils 0.1 thou/uL (0.0-0.2); #Eosinphils 0.2 thou/uL (0.0-0.7); #Lymphocytes 0.8 thou/uL (1.20-3.40); #Monocytes 1.4 thou/uL (0.11-0.59); %Basophils 1.3 % (0.0-1.0); %Eosinophils 3.6 % (0.0-10.0); %Lymphocytes 11.9 % (21.0-51.0); %Monocytes 21.4 % (0.0-10.0); %Neutrophils 61.8 % (42.0-75.0); Hematocrit 29.2 % (42.0-52.0); Hemoglobin 8.8 g/dL (14.0-18.0); Mean Corpuscular Volume 96.6 fl (78.0-98.0); Mean Platelet Volume 6.3 fL (7.4-10.4); Platelet Count 175 10x3/uL (130-400); RBC Distribution Width 16.4 % (11.5-14.5); Red Blood Cell (RBC) Count 3.03 mill/uL (4.70-6.10); White Blood Cell (WBC) Count 6.5 10x3/uL (4.8-10.8)
[2023-11-18] MEDS: Saccharomyces boulardii 250 MG CAP PO SCH (11:57)
[2023-11-19 06:18] VITALS: BMI 33.0
[2023-11-19 06:35] LABS: Anion Gap 13 mmol/L (10-20); BUN (Urea Nitrogen) 21 mg/dL (8.4-25.7); Calc. Creatinine Clearance 89 mL/min (70-130); Calcium 8.4 mg/dL (7.8-10.44); Carbon Dioxide 25 mmol/L (23-31); Chloride 103 mmol/L (98-107); Estimated GFR 66; Glucose 122 mg/dL (83-110); Potassium 3.8 mmol/L (3.5-5.1); Sodium 137 mmol/L (136-145)
[2023-11-20] MEDS: Furosemide 20 MG TAB PO SCH (11:55)
[2023-11-20 12:06] LABS: #Basophils 0.1 thou/uL (0.0-0.2); #Lymphocytes 0.5 thou/uL (1.20-3.40); #Monocytes 1.2 thou/uL (0.11-0.59); #Neutrophils 6.3 thou/uL (1.40-6.50); %Eosinophils 0.3 % (0.0-10.0); %Lymphocytes 5.8 % (21.0-51.0); %Monocytes 15.1 % (0.0-10.0); %Neutrophils 77.8 % (42.0-75.0); Hematocrit 27.8 % (42.0-52.0); Hemoglobin 8.7 g/dL (14.0-18.0); Mean Corpuscular HGB CONC 31.2 g/dL (32.0-36.0); Mean Corpuscular Hemoglobin 29.6 pg (27.0-31.0); Mean Corpuscular Volume 94.8 fl (78.0-98.0); Mean Platelet Volume 6.6 fL (7.4-10.4); Platelet Count 187 10x3/uL (130-400); RBC Distribution Width 15.4 % (11.5-14.5); Red Blood Cell (RBC) Count 2.94 mill/uL (4.70-6.10); White Blood Cell (WBC) Count 8.1 10x3/uL (4.8-10.8)
[2023-11-20 12:16] LABS: ALT (SGPT) 11 U/L (8-55); AST (SGOT) 17 U/L (5-34); Albumin 3.1 g/dL (3.4-4.8); Alkaline Phosphatase 81 U/L (40-110); Anion Gap 11 mmol/L (10-20); BUN (Urea Nitrogen) 24 mg/dL (8.4-25.7); Bilirubin, Total 1.2 mg/dL (0.2-1.2); Calc. Creatinine Clearance 93 mL/min (70-130); Calcium 8.4 mg/dL (7.8-10.44); Carbon Dioxide 25 mmol/L (23-31); Chloride 105 mmol/L (98-107); Estimated GFR 67; Globulin 2.7 g/dL (2.4-3.5); Glucose 111 mg/dL (83-110); Potassium 3.9 mmol/L (3.5-5.1); Protein, Total 5.8 g/dL (5.8-8.1); Sodium 137 mmol/L (136-145)
[2023-11-20 17:30] LABS: Bilirubin Negative (Negative); Blood, Urine Negative (Negative); Clarity Clear (Clear); Glucose, Urine (Dipstick) >=1000 mg/dL (Negative); Ketone, Urine Negative (Negative); Leukocyte Negative (Negative); Nitrite Negative (Negative); Protein, Urine (Dipstick) Negative (Neg-Trace); Specific Gravity, Urine 1.015 (1.005-1.030); Urobilinogen 0.2 mg/dL (Less than 2)
[2023-11-22] MEDS: Furosemide 20 MG TAB PO SCH ×2 (10:07→14:04)
[2023-11-23 06:45] LABS: BUN (Urea Nitrogen) 17 mg/dL (8.4-25.7)
[2023-11-23 07:13] LABS: Anion Gap 12 mmol/L (10-20); Calc. Creatinine Clearance 103 mL/min (70-130); Calcium 8.3 mg/dL (7.8-10.44); Carbon Dioxide 25 mmol/L (23-31); Chloride 105 mmol/L (98-107); Estimated GFR 74; Glucose 93 mg/dL (83-110); Potassium 3.8 mmol/L (3.5-5.1)
[2023-11-23 07:15] LABS: Sodium 138 mmol/L (136-145)
[2023-11-23] MEDS: Furosemide 40 MG TAB PO SCH (14:42)
[2023-11-25 06:10] LABS: #Basophils 0.1 thou/uL (0.0-0.2); #Eosinphils 0.2 thou/uL (0.0-0.7); #Lymphocytes 0.9 thou/uL (1.20-3.40); #Monocytes 0.6 thou/uL (0.11-0.59); #Neutrophils 2.8 thou/uL (1.40-6.50); %Basophils 1.8 % (0.0-1.0); %Eosinophils 3.3 % (0.0-10.0); %Lymphocytes 20.2 % (21.0-51.0); %Monocytes 12.5 % (0.0-10.0); %Neutrophils 62.1 % (42.0-75.0); Hematocrit 28.1 % (42.0-52.0); Hemoglobin 8.6 g/dL (14.0-18.0); Mean Corpuscular HGB CONC 30.5 g/dL (32.0-36.0); Mean Corpuscular Hemoglobin 28.9 pg (27.0-31.0); Mean Corpuscular Volume 94.7 fl (78.0-98.0); Mean Platelet Volume 6.5 fL (7.4-10.4); Platelet Count 203 10x3/uL (130-400); RBC Distribution Width 15.3 % (11.5-14.5); Red Blood Cell (RBC) Count 2.97 mill/uL (4.70-6.10); White Blood Cell (WBC) Count 4.6 10x3/uL (4.8-10.8)
[2023-11-25 06:18] LABS: Anion Gap 12 mmol/L (10-20); BUN (Urea Nitrogen) 13 mg/dL (8.4-25.7); Calc. Creatinine Clearance 99 mL/min (70-130); Calcium 8.6 mg/dL (7.8-10.44); Carbon Dioxide 26 mmol/L (23-31); Chloride 107 mmol/L (98-107); Estimated GFR 73; Glucose 92 mg/dL (83-110); Sodium 141 mmol/L (136-145)
[2023-11-26] MEDS: oxyCODONE 5 MG TAB PO PRN (08:48)
[2023-11-27 05:25] VITALS: BMI 34.2
[2023-11-27 05:51] LABS: Hematocrit 28.5 % (42.0-52.0); Hemoglobin 8.7 g/dL (14.0-18.0); Platelet Count 224 10x3/uL (130-400)
[2023-11-28 06:06] LABS: #Basophils 0.1 thou/uL (0.0-0.2); #Eosinphils 0.2 thou/uL (0.0-0.7); #Lymphocytes 0.9 thou/uL (1.20-3.40); #Monocytes 0.6 thou/uL (0.11-0.59); #Neutrophils 2.5 thou/uL (1.40-6.50); %Basophils 1.4 % (0.0-1.0); %Eosinophils 5.1 % (0.0-10.0); %Lymphocytes 20.5 % (21.0-51.0); %Monocytes 13.5 % (0.0-10.0); %Neutrophils 59.4 % (42.0-75.0); Hematocrit 29.2 % (42.0-52.0); Mean Corpuscular HGB CONC 30.8 g/dL (32.0-36.0); Mean Corpuscular Hemoglobin 28.6 pg (27.0-31.0); Mean Corpuscular Volume 92.9 fl (78.0-98.0); Platelet Count 225 10x3/uL (130-400); RBC Distribution Width 14.9 % (11.5-14.5); Red Blood Cell (RBC) Count 3.15 mill/uL (4.70-6.10); White Blood Cell (WBC) Count 4.3 10x3/uL (4.8-10.8)
[2023-11-28 06:22] LABS: ALT (SGPT) 10 U/L (8-55); AST (SGOT) 16 U/L (5-34); Alkaline Phosphatase 98 U/L (40-110); Anion Gap 10 mmol/L (10-20); BUN (Urea Nitrogen) 16 mg/dL (8.4-25.7); Bilirubin, Total 0.5 mg/dL (0.2-1.2); Calc. Creatinine Clearance 0 mL/min (70-130); Calcium 8.6 mg/dL (7.8-10.44); Carbon Dioxide 28 mmol/L (23-31); Chloride 106 mmol/L (98-107); Estimated GFR 74; Globulin 2.8 g/dL (2.4-3.5); Glucose 94 mg/dL (83-110); Potassium 3.9 mmol/L (3.5-5.1); Protein, Total 5.8 g/dL (5.8-8.1); Sodium 140 mmol/L (136-145)
[2023-11-29] MEDS: Apixaban 5 MG TAB PO SCH (09:00)
[2023-11-30 07:20] VITALS: BP 145/90; TEMP 98.1
== END 2023-11-30 11:12 | disposition home or self-care (01) | DRG 560 ==
LOC: NAV ACUTE 20:52
PROVIDERS: ADMIT Student in an Organized Health Care Education/Training Program; ATTEND Student in an Organized Health Care Education/Training Program
PROC: 30233N1 Transfusion of Nonautologous Red Blood Cells into Peripheral Vein, Percutaneous Approach (ICD-10-PCS; principal; 2023-11-13)
DX: Z47.1 Aftercare following joint replacement surgery (principal); D62 Acute posthemorrhagic anemia; Z96.641 Presence of right artificial hip joint; I48.0 Paroxysmal atrial fibrillation; N40.0 Benign prostatic hyperplasia without lower urinary tract symptoms; N18.30 Chronic kidney disease, stage 3 unspecified; I73.9 Peripheral vascular disease, unspecified; G62.9 Polyneuropathy, unspecified; Z96.651 Presence of right artificial knee joint; R53.81 Other malaise; M48.02 Spinal stenosis, cervical region; N18.2 Chronic kidney disease, stage 2 (mild); I12.9 Hypertensive chronic kidney disease with stage 1 through stage 4 chronic kidney disease, or unspecified chronic kidney disease; M17.0 Bilateral primary osteoarthritis of knee; Z98.890 Other specified postprocedural states; Z82.49 Family history of ischemic heart disease and other diseases of the circulatory system; Z87.891 Personal history of nicotine dependence
CPT/HCPCS: 36415; 36430; 80048; 80053; 81001; 85014; 85018; 85025; 85049; 86850; 86900; 86901; 87040; P9016; Q0162

== ENCOUNTER 2024-02-08 15:30 | Inpatient (IN) | payer OTHER ==
[2024-02-08] MEDS ORDERED: Ondansetron ODT 4 MG TAB SL PRN (19:05)
[2024-02-08] MEDS: Melatonin 3 MG TAB PO SCH (22:17)
[2024-02-08] MEDS: Acetaminophen 325 MG TAB PO SCH (22:17)
[2024-02-08] MEDS: Carvedilol 25 MG TAB PO SCH (22:17)
[2024-02-08] MEDS: Pregabalin 200 MG CAPSULE PO SCH (22:18)
[2024-02-09 05:08] LABS: Hematocrit 35.2 % (42.0-52.0); Hemoglobin 11.9 g/dL (14.0-18.0); Mean Corpuscular HGB CONC 33.8 g/dL (32.0-36.0); Mean Corpuscular Hemoglobin 32.6 pg (27.0-31.0); Mean Corpuscular Volume 96.6 fl (78.0-98.0); Mean Platelet Volume 7.6 fL (7.4-10.4); Platelet Count 116 10x3/uL (130-400); Red Blood Cell (RBC) Count 3.64 mill/uL (4.70-6.10); White Blood Cell (WBC) Count 6.1 10x3/uL (4.8-10.8)
[2024-02-09 05:09] LABS: #Lymphocytes 0.5 thou/uL (1.20-3.40); #Neutrophils 4.2 thou/uL (1.40-6.50); %Basophils 1.1 % (0.0-1.0); %Eosinophils 2.9 % (0.0-10.0); %Lymphocytes 7.5 % (21.0-51.0); %Monocytes 19.5 % (0.0-10.0); %Neutrophils 68.9 % (42.0-75.0)
[2024-02-09 05:10] LABS: #Basophils 0.1 thou/uL (0.0-0.2); #Eosinophils 0.2 thou/uL (0.0-0.7); #Monocytes 1.2 thou/uL (0.11-0.59)
[2024-02-09 05:24] LABS: ALT (SGPT) 18 U/L (8-55); AST (SGOT) 18 U/L (5-34); Albumin 3.3 g/dL (3.4-4.8); Alkaline Phosphatase 92 U/L (40-110); Anion Gap 11 mmol/L (10-20); BUN (Urea Nitrogen) 15 mg/dL (8.4-25.7); Bilirubin, Total 1.1 mg/dL (0.2-1.2); Calc. Creatinine Clearance 120 mL/min (70-130); Calcium 9.1 mg/dL (7.8-10.44); Carbon Dioxide 25 mmol/L (23-31); Chloride 102 mmol/L (98-107); Estimated GFR 92; Globulin 2.5 g/dL (2.4-3.5); Glucose 97 mg/dL (83-110); Protein, Total 5.8 g/dL (5.8-8.1); Sodium 134 mmol/L (136-145)
[2024-02-09] MEDS: oxyCODONE 5 MG TAB PO PRN (06:23)
[2024-02-09] MEDS: Empagliflozin 10 MG TAB PO SCH (08:42)
[2024-02-09] MEDS: Ferrous Sulfate 325 MG TAB PO SCH (08:42)
[2024-02-09] MEDS: Furosemide 20 MG TAB PO SCH (08:42)
[2024-02-09] MEDS: Pregabalin 200 MG CAPSULE PO SCH (08:42)
[2024-02-09] MEDS: Tamsulosin HCl 0.4 MG CAP PO SCH (08:43)
[2024-02-09] MEDS: Carvedilol 25 MG TAB PO SCH (08:44)
[2024-02-09] MEDS: Pantoprazole DR 40 MG TAB PO SCH (08:44)
[2024-02-09] MEDS: Methocarbamol 500 MG TAB PO PRN (08:44)
[2024-02-09] MEDS: Lisinopril 20 MG TAB PO SCH (08:44)
[2024-02-09] MEDS: Melatonin 3 MG TAB PO SCH (21:36)
[2024-02-10 00:53] VITALS: BMI 32.1
[2024-02-10] MEDS: Senokot S 8.6-50 MG TAB PO PRN (12:40)
[2024-02-10] MEDS ORDERED: Bisacodyl 10 MG SUPP PR PRN (16:30)
[2024-02-10] MEDS: Carvedilol 25 MG TAB PO SCH (18:11)
[2024-02-11] MEDS: Bisacodyl 5 MG TAB PO PRN (08:06)
[2024-02-11] MEDS: Carvedilol 25 MG TAB PO SCH (08:07)
[2024-02-11] MEDS ORDERED: hydrALAZINE 10 MG TAB PO PRN (08:13)
[2024-02-11 11:50] VITALS: BMI 32.1
[2024-02-13] MEDS: Ascorbic Acid 500 mg Chewable Tablet PO SCH (07:36)
[2024-02-14] MEDS: Lidocaine 4% Patch TD SCH (07:29)
[2024-02-14] MEDS ORDERED: Lidocaine 4% Patch TD SCH (09:00)
[2024-02-14] MEDS: Transdermal Patch Removal TOP SCH (21:40)
[2024-02-14] MEDS: Melatonin 3 MG TAB PO SCH (23:54)
[2024-02-15 05:57] LABS: Hematocrit 36.6 % (42.0-52.0); Hemoglobin 12.3 g/dL (14.0-18.0); Mean Corpuscular HGB CONC 33.6 g/dL (32.0-36.0); Mean Corpuscular Hemoglobin 32.3 pg (27.0-31.0); Mean Corpuscular Volume 96.1 fl (78.0-98.0); Mean Platelet Volume 7.4 fL (7.4-10.4); Platelet Count 182 10x3/uL (130-400); RBC Distribution Width 15.5 % (11.5-14.5); Red Blood Cell (RBC) Count 3.81 mill/uL (4.70-6.10); White Blood Cell (WBC) Count 5.2 10x3/uL (4.8-10.8)
[2024-02-15 06:00] LABS: #Basophils 0.1 thou/uL (0.0-0.2); #Eosinophils 0.2 thou/uL (0.0-0.7); #Lymphocytes 0.9 thou/uL (1.20-3.40); %Eosinophils 3.9 % (0.0-10.0); %Lymphocytes 17.4 % (21.0-51.0); %Monocytes 18.5 % (0.0-10.0); %Neutrophils 58.2 % (42.0-75.0)
[2024-02-15 06:10] LABS: Anion Gap 11 mmol/L (10-20); BUN (Urea Nitrogen) 17 mg/dL (8.4-25.7); Calc. Creatinine Clearance 101 mL/min (70-130); Carbon Dioxide 26 mmol/L (23-31); Chloride 104 mmol/L (98-107); Estimated GFR 79; Glucose 97 mg/dL (83-110); Potassium 3.7 mmol/L (3.5-5.1); Sodium 137 mmol/L (136-145)
[2024-02-16] MEDS: Acetaminophen 325 MG TAB ONE (09:55)
[2024-02-17] MEDS: Ibuprofen 200 MG TAB PO SCH (14:19)
[2024-02-20 06:23] LABS: Anion Gap 11 mmol/L (10-20); BUN (Urea Nitrogen) 19 mg/dL (8.4-25.7); Calc. Creatinine Clearance 103 mL/min (70-130); Calcium 9.2 mg/dL (7.8-10.44); Carbon Dioxide 25 mmol/L (23-31); Chloride 105 mmol/L (98-107); Estimated GFR 81; Glucose 90 mg/dL (83-110); Potassium 3.9 mmol/L (3.5-5.1); Sodium 137 mmol/L (136-145)
[2024-02-20 06:25] LABS: #Basophils 0.1 thou/uL (0.0-0.2); #Eosinophils 0.2 thou/uL (0.0-0.7); #Lymphocytes 0.9 thou/uL (1.20-3.40); #Neutrophils 4.6 thou/uL (1.40-6.50); %Basophils 1.2 % (0.0-1.0); %Eosinophils 2.7 % (0.0-10.0); %Neutrophils 68.1 % (42.0-75.0); Hematocrit 36.9 % (42.0-52.0); Hemoglobin 11.8 g/dL (14.0-18.0); Mean Corpuscular HGB CONC 32.1 g/dL (32.0-36.0); Mean Corpuscular Hemoglobin 31.5 pg (27.0-31.0); Mean Corpuscular Volume 98.3 fl (78.0-98.0); Platelet Count 191 10x3/uL (130-400); RBC Distribution Width 15.4 % (11.5-14.5); Red Blood Cell (RBC) Count 3.75 mill/uL (4.70-6.10); White Blood Cell (WBC) Count 6.8 10x3/uL (4.8-10.8)
[2024-02-21] MEDS: Lisinopril 20 MG TAB PO SCH (07:33)
[2024-02-23] MEDS: Cyclobenzaprine 10 MG TAB PO PRN (12:46)
[2024-02-24] MEDS: Senokot S 8.6-50 MG TAB PO SCH (00:12)
[2024-02-24] MEDS ORDERED: oxyCODONE 5 MG TAB PO PRN (13:26)
[2024-02-24] MEDS ORDERED: Diclofenac 1% 100 GM Topical GEL TP PRN (13:36)
[2024-02-24] MEDS: oxyCODONE 5 MG TAB PO PRN (14:02)
[2024-02-24] MEDS: Naproxen 500 MG TAB PO PRN (14:03)
[2024-02-25] MEDS: Senokot S 8.6-50 MG TAB PO SCH (21:29)
[2024-02-26] MEDS ORDERED: Ondansetron ODT 4 MG TAB SL PRN (18:57)
[2024-02-26] MEDS ORDERED: Diclofenac 1% 100 GM Topical GEL TP PRN (19:00)
[2024-02-26] MEDS ORDERED: hydrALAZINE 10 MG TAB PO PRN (19:00)
[2024-02-26] MEDS: Pregabalin 200 MG CAPSULE PO SCH (21:15)
[2024-02-26] MEDS: Senokot S 8.6-50 MG TAB PO SCH (21:34)
[2024-02-26] MEDS: Melatonin 3 MG TAB PO SCH (23:31)
[2024-02-26] MEDS: Acetaminophen 325 MG TAB PO SCH (23:32)
[2024-02-26] MEDS: oxyCODONE 5 MG TAB PO PRN (23:33)
[2024-02-27] MEDS: Tamsulosin HCl 0.4 MG CAP PO SCH (07:53)
[2024-02-27] MEDS: Carvedilol 25 MG TAB PO SCH (07:54)
[2024-02-27] MEDS: Pantoprazole DR 40 MG TAB PO SCH (07:54)
[2024-02-27] MEDS: Ferrous Sulfate 325 MG TAB PO SCH (07:55)
[2024-02-27] MEDS: Ascorbic Acid 500 mg Chewable Tablet PO SCH (07:55)
[2024-02-27] MEDS: Empagliflozin 10 MG TAB PO SCH (07:55)
[2024-02-27] MEDS: Furosemide 20 MG TAB PO SCH (07:55)
[2024-02-27] MEDS: Lisinopril 20 MG TAB PO SCH (07:56)
[2024-02-27] MEDS: Bisacodyl 5 MG TAB PO PRN (13:55)
[2024-02-27] MEDS: oxyCODONE 5 MG TAB PO PRN (23:39)
[2024-02-28 06:04] LABS: #Basophils 0.1 thou/uL (0.0-0.2); #Eosinophils 0.1 thou/uL (0.0-0.7); #Lymphocytes 0.8 thou/uL (1.20-3.40); #Monocytes 0.8 thou/uL (0.11-0.59); #Neutrophils 2.5 thou/uL (1.40-6.50); %Basophils 1.8 % (0.0-1.0); %Eosinophils 3.1 % (0.0-10.0); %Lymphocytes 18.3 % (21.0-51.0); %Neutrophils 58.7 % (42.0-75.0); Hematocrit 35.5 % (42.0-52.0); Hemoglobin 11.5 g/dL (14.0-18.0); Mean Corpuscular HGB CONC 32.3 g/dL (32.0-36.0); Mean Corpuscular Hemoglobin 31.2 pg (27.0-31.0); Mean Corpuscular Volume 96.4 fl (78.0-98.0); Mean Platelet Volume 7.6 fL (7.4-10.4); Platelet Count 148 10x3/uL (130-400); RBC Distribution Width 14.4 % (11.5-14.5); Red Blood Cell (RBC) Count 3.68 mill/uL (4.70-6.10); White Blood Cell (WBC) Count 4.2 10x3/uL (4.8-10.8)
[2024-02-28 06:13] LABS: Anion Gap 12 mmol/L (10-20); BUN (Urea Nitrogen) 22 mg/dL (8.4-25.7); Calc. Creatinine Clearance 84 mL/min (70-130); Carbon Dioxide 26 mmol/L (23-31); Chloride 102 mmol/L (98-107); Estimated GFR 63; Glucose 85 mg/dL (83-110); Potassium 4.2 mmol/L (3.5-5.1); Sodium 136 mmol/L (136-145)
[2024-02-28] MEDS: Lisinopril 20 MG TAB PO SCH (07:27)
[2024-02-28] MEDS: Cyclobenzaprine 10 MG TAB PO PRN (09:30)
[2024-02-28] MEDS: Naproxen 500 MG TAB PO PRN (09:30)
[2024-02-29 07:13] VITALS: BP 166/90; TEMP 98
== END 2024-02-29 11:35 | disposition home health service (06) | DRG 561 ==
LOC: NAV ACUTE 19:48 → UNDODISIN 02-26 17:50
PROVIDERS: ADMIT Family Medicine; ATTEND Family Medicine
DX: S32.592D Other specified fracture of left pubis, subsequent encounter for fracture with routine healing (principal); X58.XXXD Exposure to other specified factors, subsequent encounter; I48.0 Paroxysmal atrial fibrillation; N40.0 Benign prostatic hyperplasia without lower urinary tract symptoms; N18.30 Chronic kidney disease, stage 3 unspecified; I12.9 Hypertensive chronic kidney disease with stage 1 through stage 4 chronic kidney disease, or unspecified chronic kidney disease; Z98.890 Other specified postprocedural states; Z79.899 Other long term (current) drug therapy; R53.81 Other malaise; R33.9 Retention of urine, unspecified; I73.9 Peripheral vascular disease, unspecified; M48.02 Spinal stenosis, cervical region; S32.19XD Other fracture of sacrum, subsequent encounter for fracture with routine healing; G62.9 Polyneuropathy, unspecified
CPT/HCPCS: 36415; 80048; 80053; 85025

== ENCOUNTER 2025-03-02 15:27 | Inpatient (IN) | payer OTHER ==
[2025-03-02] MEDS ORDERED: Calcium Carbonate 500 MG ChewTAB PO PRN (17:14)
[2025-03-02] MEDS: Calcium Carbonate 600 MG + Vit D TAB PO SCH (20:47)
[2025-03-02] MEDS: Apixaban 5 MG TAB PO SCH (20:47)
[2025-03-02] MEDS: Carvedilol 3.125 MG TAB PO SCH (20:47)
[2025-03-02] MEDS: Famotidine 20 MG TAB PO SCH (20:47)
[2025-03-02] MEDS: Acetaminophen 325 MG TAB PO PRN (21:15)
[2025-03-03 05:47] LABS: #Basophils 0.1 thou/uL (0.0-0.2); #Eosinophils 0.1 thou/uL (0.0-0.7); #Lymphocytes 1.0 thou/uL (1.20-3.40); #Monocytes 0.8 thou/uL (0.11-0.59); #Neutrophils 4.1 thou/uL (1.40-6.50); %Basophils 1.8 % (0.0-1.0); %Eosinophils 1.6 % (0.0-10.0); %Lymphocytes 16.7 % (21.0-51.0); %Monocytes 13.1 % (0.0-10.0); %Neutrophils 66.7 % (42.0-75.0); Hematocrit 30.7 % (42.0-52.0); Hemoglobin 11.1 g/dL (14.0-18.0); Mean Corpuscular Hemoglobin 31.9 pg (27.0-31.0); Mean Corpuscular Volume 88.3 fl (78.0-98.0); Platelet Count 296 10x3/uL (130-400); Red Blood Cell (RBC) Count 3.48 mill/uL (4.70-6.10); White Blood Cell (WBC) Count 6.1 10x3/uL (4.8-10.8)
[2025-03-03 06:01] LABS: ALT (SGPT) 31 U/L (Less than 45); AST (SGOT) 41 U/L (11-34); Albumin 3.0 g/dL (3.1-4.5); Alkaline Phosphatase 87 U/L (40-110); Anion Gap 14 mmol/L (10-20); BUN (Urea Nitrogen) 13 mg/dL (8.4-25.7); Bilirubin, Total 0.8 mg/dL (0.3-1.2); Calc. Creatinine Clearance 114 mL/min (70-130); Calcium 9.4 mg/dL (7.8-10.44); Carbon Dioxide 24 mmol/L (23-31); Chloride 101 mmol/L (98-107); Globulin 3.5 g/dL (2.4-3.5); Glucose 91 mg/dL (83-110); Potassium 3.8 mmol/L (3.5-5.1); Sodium 135 mmol/L (136-145)
[2025-03-03] MEDS: Multivit, Therapeutic 1 TAB PO SCH (07:57)
[2025-03-03] MEDS: Folic Acid 1 MG TAB PO SCH (07:58)
[2025-03-03] MEDS: Thiamine 100 MG TAB PO SCH (07:59)
[2025-03-03] MEDS: Furosemide 20 MG TAB PO SCH (09:01)
[2025-03-05] MEDS: Melatonin 3 MG TAB PO SCH (20:33)
[2025-03-06 05:53] LABS: #Basophils 0.0 thou/uL (0.0-0.2); #Eosinophils 0.2 thou/uL (0.0-0.7); #Lymphocytes 1.0 thou/uL (1.20-3.40); #Monocytes 0.9 thou/uL (0.11-0.59); #Neutrophils 5.0 thou/uL (1.40-6.50); %Basophils 0.7 % (0.0-1.0); %Eosinophils 2.6 % (0.0-10.0); %Lymphocytes 14.7 % (21.0-51.0); %Monocytes 11.9 % (0.0-10.0); %Neutrophils 70.1 % (42.0-75.0); Hematocrit 29.0 % (42.0-52.0); Hemoglobin 10.1 g/dL (14.0-18.0); Mean Corpuscular Hemoglobin 30.6 pg (27.0-31.0); Mean Corpuscular Volume 87.7 fl (78.0-98.0); Platelet Count 248 10x3/uL (130-400); Red Blood Cell (RBC) Count 3.31 mill/uL (4.70-6.10); White Blood Cell (WBC) Count 7.1 10x3/uL (4.8-10.8)
[2025-03-06 06:09] LABS: ALT (SGPT) 21 U/L (Less than 45); AST (SGOT) 30 U/L (11-34); Albumin 2.7 g/dL (3.1-4.5); Alkaline Phosphatase 80 U/L (40-110); Anion Gap 11 mmol/L (10-20); BUN (Urea Nitrogen) 28 mg/dL (8.4-25.7); Bilirubin, Total 0.6 mg/dL (0.3-1.2); Calc. Creatinine Clearance 99 mL/min (70-130); Calcium 9.5 mg/dL (7.8-10.44); Carbon Dioxide 25 mmol/L (23-31); Chloride 104 mmol/L (98-107); Globulin 3.1 g/dL (2.4-3.5); Glucose 95 mg/dL (83-110); Potassium 3.6 mmol/L (3.5-5.1); Sodium 136 mmol/L (136-145)
[2025-03-07] MEDS: Carvedilol 3.125 MG TAB PO SCH (21:07)
[2025-03-09] MEDS: Sulfameth/Trimethoprim DS 800-160mg TAB PO SCH (13:25)
[2025-03-10 06:18] LABS: Anion Gap 10 mmol/L (10-20); BUN (Urea Nitrogen) 30 mg/dL (8.4-25.7); Calc. Creatinine Clearance 108 mL/min (70-130); Calcium 9.0 mg/dL (7.8-10.44); Carbon Dioxide 25 mmol/L (23-31); Chloride 105 mmol/L (98-107); Glucose 85 mg/dL (83-110); Potassium 3.5 mmol/L (3.5-5.1); Sodium 136 mmol/L (136-145)
[2025-03-11] MEDS ORDERED: Aspirin 81 mg Enteric Coated Tablet PO SCH (09:00)
[2025-03-11] MEDS: Rosuvastatin 10 MG TAB PO SCH (21:07)
[2025-03-12 07:00] LABS: #Basophils 0.1 thou/uL (0.0-0.2); #Eosinophils 0.1 thou/uL (0.0-0.7); #Lymphocytes 0.9 thou/uL (1.20-3.40); #Monocytes 0.7 thou/uL (0.11-0.59); #Neutrophils 2.4 thou/uL (1.40-6.50); %Basophils 1.2 % (0.0-1.0); %Eosinophils 3.2 % (0.0-10.0); %Lymphocytes 21.2 % (21.0-51.0); %Monocytes 16.3 % (0.0-10.0); %Neutrophils 58.2 % (42.0-75.0); Hematocrit 28.2 % (42.0-52.0); Hemoglobin 9.3 g/dL (14.0-18.0); Manual Diff?? NO; Mean Corpuscular Hemoglobin 32.1 pg (27.0-31.0); Mean Corpuscular Volume 97.9 fl (78.0-98.0); Platelet Count 132 10x3/uL (130-400); Red Blood Cell (RBC) Count 2.89 mill/uL (4.70-6.10); White Blood Cell (WBC) Count 4.1 10x3/uL (4.8-10.8)
[2025-03-12] MEDS: Ferrous Sulfate 325 MG TAB PO SCH (08:31)
[2025-03-13] MEDS: Acetaminophen 325 MG TAB PO PRN (10:08)
[2025-03-13] MEDS: Benzonatate 100 MG CAP PO PRN (19:51)
[2025-03-14] MEDS: Furosemide 20 MG TAB PO SCH (15:19)
[2025-03-14] MEDS: Senokot S 8.6-50 MG TAB PO PRN (21:03)
[2025-03-15 05:41] LABS: Hematocrit 27.3 % (42.0-52.0); Hemoglobin 9.3 g/dL (14.0-18.0)
[2025-03-15 05:54] LABS: ALT (SGPT) 13 U/L (Less than 45); AST (SGOT) 23 U/L (11-34); Albumin 2.9 g/dL (3.1-4.5); Alkaline Phosphatase 73 U/L (40-110); Anion Gap 12 mmol/L (10-20); BUN (Urea Nitrogen) 30 mg/dL (8.4-25.7); Bilirubin, Total 0.6 mg/dL (0.3-1.2); Calc. Creatinine Clearance 88 mL/min (70-130); Calcium 9.1 mg/dL (7.8-10.44); Carbon Dioxide 25 mmol/L (23-31); Chloride 103 mmol/L (98-107); Globulin 3.0 g/dL (2.4-3.5); Glucose 85 mg/dL (83-110); Potassium 4.1 mmol/L (3.5-5.1); Sodium 136 mmol/L (136-145)
[2025-03-19 05:46] LABS: Hematocrit 28.6 % (42.0-52.0); Hemoglobin 9.6 g/dL (14.0-18.0)
[2025-03-19 05:56] LABS: ALT (SGPT) 14 U/L (Less than 45); AST (SGOT) 25 U/L (11-34); Albumin 3.0 g/dL (3.1-4.5); Alkaline Phosphatase 72 U/L (40-110); Anion Gap 12 mmol/L (10-20); BUN (Urea Nitrogen) 31 mg/dL (8.4-25.7); Bilirubin, Total 0.7 mg/dL (0.3-1.2); Calc. Creatinine Clearance 89 mL/min (70-130); Calcium 9.3 mg/dL (7.8-10.44); Carbon Dioxide 25 mmol/L (23-31); Chloride 103 mmol/L (98-107); Globulin 3.1 g/dL (2.4-3.5); Glucose 85 mg/dL (83-110); Potassium 3.5 mmol/L (3.5-5.1); Sodium 136 mmol/L (136-145)
[2025-03-19 19:19] VITALS: BMI 32.4
[2025-03-23] MEDS: Bisacodyl 10 MG SUPP PR PRN (18:25)
[2025-03-24 05:51] VITALS: BMI 32.6
[2025-03-25] MEDS: Fluconazole 100 MG TAB PO SCH (20:23)
[2025-03-25] MEDS: Sulfameth/Trimethoprim DS 800-160mg TAB PO SCH (20:23)
[2025-03-26 06:05] LABS: Hematocrit 30.6 % (42.0-52.0); Hemoglobin 10.3 g/dL (14.0-18.0); Mean Corpuscular Hemoglobin 32.5 pg (27.0-31.0); Mean Corpuscular Volume 97.1 fl (78.0-98.0); Platelet Count 146 10x3/uL (130-400); Red Blood Cell (RBC) Count 3.15 mill/uL (4.70-6.10); White Blood Cell (WBC) Count 4.3 10x3/uL (4.8-10.8)
[2025-03-26 06:12] LABS: ALT (SGPT) 13 U/L (Less than 45); AST (SGOT) 23 U/L (11-34); Albumin 3.1 g/dL (3.1-4.5); Alkaline Phosphatase 75 U/L (40-110); Anion Gap 14 mmol/L (10-20); BUN (Urea Nitrogen) 31 mg/dL (8.4-25.7); Bilirubin, Total 0.8 mg/dL (0.3-1.2); Calc. Creatinine Clearance 81 mL/min (70-130); Calcium 9.5 mg/dL (7.8-10.44); Carbon Dioxide 23 mmol/L (23-31); Chloride 107 mmol/L (98-107); Globulin 3.4 g/dL (2.4-3.5); Glucose 91 mg/dL (83-110); Potassium 3.6 mmol/L (3.5-5.1); Sodium 140 mmol/L (136-145)
[2025-03-26 06:25] LABS: Platelet Adequacy Comment Appears Adequate
[2025-03-26 06:26] LABS: MDiff Complete? YES
[2025-03-26 09:38] VITALS: BP 134/84; TEMP 98.4
== END 2025-03-26 13:30 | DRG 945 ==
LOC: NAV ACUTE 17:02
PROVIDERS: ADMIT Student in an Organized Health Care Education/Training Program; ATTEND Student in an Organized Health Care Education/Training Program
PROC: F07Z9ZZ Gait Training/Functional Ambulation Treatment (ICD-10-PCS; principal; 2025-03-07)
PROC: 0T9B30Z Drainage of Bladder with Drainage Device, Percutaneous Approach (ICD-10-PCS; principal; 2025-03-07)
PROC: F08Z4ZZ Home Management Treatment (ICD-10-PCS; 2025-03-07)
DX: R53.81 Other malaise (principal); E87.1 Hypo-osmolality and hyponatremia; I48.20 Chronic atrial fibrillation, unspecified; I13.0 Hypertensive heart and chronic kidney disease with heart failure and stage 1 through stage 4 chronic kidney disease, or unspecified chronic kidney disease; I50.32 Chronic diastolic (congestive) heart failure; M80.88XA Other osteoporosis with current pathological fracture, vertebra(e), initial encounter for fracture; N30.90 Cystitis, unspecified without hematuria; Z79.01 Long term (current) use of anticoagulants; Z66 Do not resuscitate; Z88.1 Allergy status to other antibiotic agents; I87.2 Venous insufficiency (chronic) (peripheral); Z86.19 Personal history of other infectious and parasitic diseases; M48.02 Spinal stenosis, cervical region; Z98.49 Cataract extraction status, unspecified eye; Z98.890 Other specified postprocedural states; Z82.49 Family history of ischemic heart disease and other diseases of the circulatory system; Z83.6 Family history of other diseases of the respiratory system; Z87.891 Personal history of nicotine dependence; L30.4 Erythema intertrigo; Z99.3 Dependence on wheelchair; J06.9 Acute upper respiratory infection, unspecified; L89.159 Pressure ulcer of sacral region, unspecified stage; K59.00 Constipation, unspecified; E11.22 Type 2 diabetes mellitus with diabetic chronic kidney disease; N18.1 Chronic kidney disease, stage 1; E11.51 Type 2 diabetes mellitus with diabetic peripheral angiopathy without gangrene; N40.1 Benign prostatic hyperplasia with lower urinary tract symptoms; Z96.641 Presence of right artificial hip joint; E11.40 Type 2 diabetes mellitus with diabetic neuropathy, unspecified; B95.62 Methicillin resistant Staphylococcus aureus infection as the cause of diseases classified elsewhere; B96.20 Unspecified Escherichia coli [E. coli] as the cause of diseases classified elsewhere; W19.XXXA Unspecified fall, initial encounter; D63.1 Anemia in chronic kidney disease; R33.8 Other retention of urine
CPT/HCPCS: 36415; 71045; 72072; 80048; 80053; 83036; 85014; 85018; 85025; 87070; 87077; 87186; 87205; 94640; 97602